=== PATIENT | female | born 1950 | race Caucasian/White ===

== ENCOUNTER 2018-09-26 16:37 | Emergency (ER) | payer MEDICARE, BC ==
--- OUTSIDE RECORDS SUMMARY | 2018-09-26 17:35 | XMS REPORT | Continuity of Care Document ---
:1950 External Reference #:[id number] Author Name Talha Miller M.D. Address [address] [place] [address] Care Team Providers Name Role Phone Talha Miller M.D. 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 Payers Type Date Identification Numbers Payment Provider Subscriber Effective: Policy Number: [id number] Medicare - NGS Orestes Aguilar 2014 Group Name: Medicare [address] PayID: [id number] [place] [address] Effective: 2012 Policy Number: [id number] [facility] DENAE Yuri Aguilar Group Name: [facility] [address] [address] PayID: [id number] [place] [address] Advance Directives Type Date Description Status Comment Other Directive 06/16/2018 Health Care Proxy Current and Verified Problems Date Description Provider Status Onset: 10/23/2011 Hypothyroidism Talha Miller M.D. Active Onset: 10/23/2011 Chronic obstructive lung disease Talha Miller M.D. Active Onset: 10/23/2011 Asthma without status Talha Miller M.D. Active asthmaticus Onset: 10/23/2011 Chronic bronchitis Talha Miller M.D. Active Onset: 10/23/2011 Pulmonary emphysema Talha Miller M.D. Active Onset: 10/23/2011 Hyperlipidemia Talha Miller M.D. 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 Active Onset: 10/23/2011 Type 2 diabetes mellitus Talha Miller M.D. Resolved Resolved: 12/07/2014 Family History Date Family Member(s) Problem(s) Comments General Diabetes General Lung Cancer General Heart Attack Mother Diabetes Medication Induced Social History Type Date Description Comments Sex Unknown Marital Status Legal Status: Lives With Spouse Work Status Retired ETOH Use Rarely Tobacco Use Start: Unknown End: Unknown Patient is a former smoker Smoking Status Reviewed: 09/14/18 Patient is a former smoker Allergies, Adverse Reactions, Alerts Date Description Reaction Status Severity Comments 09/28/2013 Lipitor myalgia Active Severe 12/02/2011 NKDA Inactive Medications Medication Date Status Form Strength Qnty SIG Indications Ordering Provider Pantoprazole 08/13/ Active Tablets DR 40mg 90tab 1 by mouth Talha Sodium 2017 s bid every Castellan day Héctor lam Zofran Odt 08/13/ Active Tablets 4mg 30tab 1 every 6 2017 Dispers s hrs prn Rebecca lam M.D. Wrist Splint 12/11/ Active Misc 2unit use for G56.03 2017 s the Lt and Castellaclara Rt wrist Héctor lam at night Levothyroxine 12/07/ Active Tablets 150mcg 90tab 1 by mouth E03.9 Talha Sodium 2017 s every day Rebecca lam M.D. Vitamin D-3 06/07/ Active Capsules 1000Unit 30cap 5 by mouth 2014 s every day Rebecca lam M.D. Flintstones 06/07/ Active Chewtabs 60mg 2 q d Talha Pike 2014 Rebecca lam M.D. Vitamin B-12 06/07/ Active Tablets 1000mcg 1T PO qod Talha 2014 Rebecca lam M.D. Atorvastatin / Active Tablets 80mg 30tab take 1 Talha Calcium 0000 s tablet by Castellan william osHéctor every day in the evening Lisinopril / Active Tablets 5mg Take 1 Unknown 0000 Tablet By Mouth Every Day Metoprolol / Active Tablets 25mg Take 1 Unknown Tartrate 0000 Tablet By Mouth Daily Nitroglycerin / Active Tablets 0.4mg Place 1 Unknown 0000 Sub Tablet Under The Tongue Every 5 Mins as Needed For Chest Pain Ferrous Sulfate / Active Tablets 325(65Fe) take one Dr. Megan 0000 mg tablet by Jona mouth daily with breakfast Sucralfate / Active Tablets 1gm take one Dr. Megan 0000 tablet by Jona mouth four times a day for 28 days. Clopidogrel 04/02/ Hx Tablets 75mg 30tab 1 by mouth Talha Bisulfate 2018 - s every day Castellan 08/13/ os, M.D. 2018 Pantoprazole 04/02/ Hx Tablets DR 40mg 90tab 1 by mouth Talha Sodium 2018 - s every day Castellan 06/16/ os, M.D. 2017 Aspir-Low 02/17/ Hx Tablets DR 81mg 90tab 1 by mouth Talha 2018 s every day Castellan os, M.D. Azithromycin 10/22/ Hx Tablets 250mg 6tabs 2 now and J06.9 Talha 2017 - daily x Castellan 12/11/ 4 days os, M.D. 2018 Benzonatate 10/22/ Hx Capsules 200mg 30cap one cap 3 J06.9 Talha 2017 - s times a Castellan 12/11/ day as os, M.D. 2018 needed cough Amoxicillin 11/05/ Hx Tablets 875mg 20tab 1 by mouth J02.9 Talha 2015 - s twice a Castellan 06/11/ day os, M.D. 2017 Viactiv 06/07/ Hx Chewtabs 500-500-4 2 chews qd Talha 2015 - 0mg-Unt-m Castellan 09/14/ cg os, M.D. 2018 Levothyroxine 06/06/ Hx Tablets 125mcg 30tab 1 by mouth E03.9 Talha Sodium 2013 - s every day Castellan 12/07/ os, M.D. 2018 Levothyroxine 11/07/ Hx Tablets 137mcg 30tab 1 po qd ( 244.9 Talha Sodium 2012 - stop the Castellan 06/06/ 150 mcg os, M.D. 2013 dose ) Levothyroxine 09/06/ Hx Tablets 150mcg 90tab 1 po qd 244.9 Talha Sodium 2012 - Castellan 11/07/ os, M.D. 2012 Levothyroxine 06/02/ Hx Tablets 137mcg 30tab 1 po qd ( 244.9 Talha Sodium 2012 - s stop the Castellan 09/06/ 125 mcg os, MCalixto 2013 dose ) Klor-Con 10 12/09/ Hx Tablets ER 10Meq 90tab 1 po qd 782.3 Talha 2012 - s Castellan 09/06/ os, M.Halie 2013 Pioglitazone HCL 12/07/ Hx Tablets 45mg 30tab Take 1 250.00 Talha 2012 - s Tablet By Castellan 09/06/ Mouth os, M.Halie 2013 Every Day Onetouch Ultra 11/27/ Hx Strips 100un Use as 250.00 Talha Alfred 2012 - its Directed Castellan 06/07/ os, M.Halie 2015 Lipitor 08/31/ Hx Tablets 20mg 30tab 1 q pm 272.4 Talha 2011 - s Castellan 09/06/ os, M.Halie 2013 Levocetirizine 08/31/ Hx Tablets 5mg 30tab 1 qd prn 477.9 Talha Knightchloride 2011 - s Castellan 09/06/ os, M.Halie 2013 Vitamin D-3 06/01/ Hx Tablets 5000Unit 90tab 1 po qd 268.9 Talha 2011 - s Castellan 09/06/ os, M.Halie 2013 Lasix 06/01/ Hx Tablets 20mg 180ta 2 po qd 782.3 Talha 2012 - bs (90 day) Castellan 09/06/ os, MCalixto 2013 Klor-Con 06/01/ Hx Tablets ER 10Meq 90tab 1 po qd 782.3 Talha 2011 - s Castellan 12/09/ os, M.Halie 2013 Niaspan 03/02/ Hx Tablets ER 500mg 180ta 2 po qd 272.4 Talha 2012 - bs with one Castellan 09/06/ aspirin os, M.Halie 2013 Tradjenta 01/01/ Hx Tablets 5mg 90tab 1 po qd 250.00 Talha 2012 - s Castellan 09/06/ os, M.Halie 2013 Actos 12/02/ Hx Tablets 45mg 30tab 1 qd 250.00 Talha 2012 - s Castellan 12/09/ os, M.DAlexi 2013 Levothyroxine 10/23/ Hx Tablets 125mcg 90tab 1 tab by 244.9 Talha Sodium 2010 - s mouth Castellan 06/02/ every day os, M.Halie 2013 Crestor 10/23/ Hx Tablets 40mg 90tab 1 tab by 272.4 Talha 2010 - s mouth Castellan 03/02/ every day os, M.DAlexi 2011 every night Onetouch Ultra 2 10/23/ Kit w/Device 250.00 Talha 2010 - Castellan 06/07/ os, M.Halie 2014 Glipizide ER 10/23/ Hx Tablets ER 10mg 90tab 1 tab by 250.00 Talha 2010 - 24HR s mouth Castellan 12/02/ every day os, M.Halie 2011 Proair HFA 10/23/ Hx Aerosol 108(90Bas 3unit 2 puffs q 496 Talha 2010 - ) mcg/ac s 4 hrs prn Castellan 06/07/ os, M.Halie 2014 493.90 Nasonex 10/23/2011 - Hx Suspension 50mcg/Act 3units 1-2 477.9 Talha 09/06/2013 sprays Paul every day Héctor Advair 10/23/2011 - Hx Aerosol 250-50mcg/Do 496 Talha Diskus 06/07/2015 se Héctor Miller 493.90 Spiriva 10/23/2011 - Hx Capsules 18mcg 1 inhalation 496 Talha Handihaler 06/07/2015 every day Héctor Miller 493.90 Albuterol 10/23/2011 - Hx Nebulizer (2.5mg/3ML) 1 application 496 Talha Sulfate 06/07/2015 0.083% q4h prn Héctor Miller 493.90 Metformin HCL 10/23/2011 - Hx Tablets 500mg 90tabs 1 qd 250.00 Talha 12/02/2011 Héctor Miller Actos 10/23/2011 - Hx Tablets 15mg 90tabs 1 qd 250.00 Talha 12/02/2011 Héctor Miller Brilinta - Hx Tablets 90mg Take 1 Unknown 04/02/2018 Tablet By Mouth Twice A Day Immunizations CPT Code Status Date Vaccine Reaction Lot # [id number] Given 08/19/2018 Flu High Dose Vaccine 54529 Given 08/19/2017 Flu High Dose Vaccine 94415 Given 08/15/2014 Flu Triv Old Code 46923 Given 06/06/2014 Prevnar 13 risk & benefits Prevnar 13 [id number] discussed p 88761 Given 09/08/2013 Flu Triv Old Code risk & benefits Flu [id number] discussed 73454 Given 08/31/2012 Shingles (Zoster) [id number] Vaccine 75262 Given 08/31/2012 Flu Triv Old Code [id number] 36480 Given 06/01/2012 Tdap Vaccine over 7 [id number] yrs old 86549 Given 10/23/2011 Flu Triv Old Code 17844 Given 09/13/2010 Flu Triv Old Code 96942 Given 08/30/2009 Flu Triv Old Code 97729 Given 02/12/2006 Hep B Vaccine - Adult Dosage 24617 Given 09/18/2005 Hep B Vaccine - Adult Dosage 01060 Given 08/14/2005 Hep B Vaccine - Adult Dosage 21458 Given 09/09/2001 Pneumovax [id number] Vital Signs Date Vital Result Comment 09/14/2018 1:01pm Weight 187.00 lb BP Systolic 146 mmHg BP Diastolic 78 mmHg 08/13/2018 1:36pm Weight 186.00 lb BP Systolic 126 mmHg BP Diastolic 58 mmHg Heart Rate 60 /min Respiratory Rate 16 /min 06/16/2018 1:05pm Weight 187.00 lb BP Systolic 120 mmHg BP Diastolic 78 mmHg Height 64.25 inches 5'4.25" Heart Rate 68 /min Respiratory Rate 16 /min BMI (Body Mass Index) 31.8 kg/m2 04/02/2018 1:31pm Weight 188.00 lb BP Systolic 90 mmHg BP Diastolic 40 mmHg 02/17/2018 11:50am Weight 184.00 lb BP Systolic 104 mmHg BP Diastolic 62 mmHg 12/11/2017 1:22pm Weight 200.00 lb BP Systolic 120 mmHg BP Diastolic 82 mmHg 10/22/2017 10:14am Weight 199.00 lb BP Systolic 132 mmHg BP Diastolic 68 mmHg Body Temperature 96.9 F 06/11/2017 1:09pm Weight 202.00 lb BP Systolic 142 mmHg BP Diastolic 82 mmHg Height 64.50 inches 5'4.50" Heart Rate 56 /min Respiratory Rate 16 /min BMI (Body Mass Index) 34.1 kg/m2 11/05/2016 2:21pm Weight 199.00 lb Body Temperature 99.9 F 06/10/2016 12:58pm Weight 194.00 lb BP Systolic 102 mmHg BP Diastolic 64 mmHg Height 64.45 inches 5'4.45" Heart Rate 64 /min Body Temperature 97.8 F O2 % BldC Oximetry 98 % BMI (Body Mass Index) 32.8 kg/m2 12/07/2015 1:49pm Weight 190.00 lb BP Systolic 110 mmHg BP Diastolic 60 mmHg 06/07/2015 12:59pm Weight 177.50 lb BP Systolic 120 mmHg BP Diastolic 70 mmHg Height 64 inches 5'4" Heart Rate 56 /min Body Temperature 97.1 F Respiratory Rate 16 /min BMI (Body Mass Index) 30.5 kg/m2 01/10/2015 1:41pm Weight 177.00 lb BP Systolic 110 mmHg BP Diastolic 78 mmHg 12/07/2014 1:52pm O2 % BldC Oximetry 99 % 12/07/2014 1:14pm Weight 173.00 lb BP Systolic 100 mmHg BP Diastolic 60 mmHg 06/06/2014 1:04pm Weight 180.00 lb BP Systolic 118 mmHg BP Diastolic 58 mmHg Height 64.25 inches 5'4.25" BMI (Body Mass Index) 30.7 kg/m2 02/07/2014 1:02pm Weight 208.50 lb BP Systolic 128 mmHg tooth extraction BP Diastolic 82 mmHg tooth extraction 11/09/2013 3:20pm Weight 237.00 lb BP Systolic 100 mmHg BP Diastolic 70 mmHg 11/09/2013 3:19pm Weight 235.00 lb 09/06/2013 1:33pm Weight 267.00 lb BP Systolic 120 mmHg BP Diastolic 68 mmHg 06/02/2013 3:20pm Weight 316.00 lb BP Systolic 120 mmHg BP Diastolic 70 mmHg Height 64 inches 5'4" Heart Rate 72 /min Body Temperature 98.5 F Respiratory Rate 16 /min BMI (Body Mass Index) 54.2 kg/m2 04/12/2013 1:30pm Weight 315.00 lb BP Systolic 130 mmHg BP Diastolic 60 mmHg Height 63.6 inches 5'3.60" BMI (Body Mass Index) 54.7 kg/m2 12/09/2012 1:23pm Weight 305.50 lb BP Systolic 120 mmHg BP Diastolic 60 mmHg Height 63.6 inches 5'3.60" BMI (Body Mass Index) 53.1 kg/m2 08/31/2012 1:00pm Weight 300.50 lb BP Systolic 130 mmHg BP Diastolic 70 mmHg Height 63.6 inches 5'3.60" BMI (Body Mass Index) 52.2 kg/m2 06/01/2012 1:03pm Weight 298.00 lb BP Systolic 140 mmHg BP Diastolic 50 mmHg Height 63.6 inches 5'3.60" Body Temperature 98.8 F Respiratory Rate 20 /min BMI (Body Mass Index) 51.8 kg/m2 03/02/2012 1:28pm Weight 295.00 lb BP Systolic 112 mmHg BP Diastolic 74 mmHg Height 63.50 inches 5'3.50" BMI (Body Mass Index) 51.4 kg/m2 01/01/2012 1:21pm Weight 278.50 lb BP Systolic 146 mmHg BP Diastolic 70 mmHg Height 63.50 inches 5'3.50" BMI (Body Mass Index) 48.6 kg/m2 10/23/2011 3:31pm Weight 278.00 lb BP Systolic 126 mmHg BP Diastolic 76 mmHg Results Test Date Facility Test Result H/L Range Note CBC 09/10/2018 [facility] White Blood Count 7.3 K/uL 3.1-10.7 8 [phone] Red Blood Count 3.85 M/uL Low 3.90-5.40 Hemoglobin 11.3 gm/dL Low 11.6-15.8 Hematocrit 37.9 % 36.0-46.1 Mean Cell Volume 98.4 fl 80.9-99.0 Mean Corpuscular HGB 29.4 pg 25.9-32.7 Mean Corpuscular HGB Conc 29.8 g/dL Low 30.8-34.3 Platelet Count 498 K/uL High 155-360 Red Cell Distri Width %CV 13.7 % 11.7-14.4 Mean Platelet Volume 10.4 fL 8.9-12.4 Laboratory test finding 09/10/2018 [facility] Ferritin 10 ng/mL 8- 252 [phone] Iron-Tibc-%Sat 09/10/2018 [facility] Serum Iron 37 g/dL Low 50- 170 [phone] Total Iron Binding Capacity 365 g/dL 250-450 Transferrin %Saturation 10 % Low 12-57 CBC 08/13/2018 [facility] White Blood Count 8.6 K/uL 3.1-10.7 [phone] Red Blood Count 2.96 M/uL Low 3.90-5.40 Hemoglobin 8.8 gm/dL Low 11.6-15.8 Hematocrit 29.5 % Low 36.0-46.1 Mean Cell Volume 99.7 fl High 80.9-99.0 Mean Corpuscular HGB 29.7 pg 25.9-32.7 Mean Corpuscular HGB Conc 29.8 g/dL Low 30.8-34.3 Platelet Count 717 K/uL High 155-360 Red Cell Distri Width %CV 15.2 % High 11.7-14.4 Mean Platelet Volume 9.9 fL 8.9-12.4 Laboratory test finding 08/13/2018 [facility] Ferritin 12 ng/mL 8- 252 [phone] Iron-Tibc-%Sat 08/13/2018 [facility] Serum Iron 49 g/dL Low 50- 170 [phone] Total Iron Binding Capacity 366 g/dL 250-450 Transferrin %Saturation 13 % 12-57 Laboratory test finding 07/26/2018 [facility] Lipase 267 U/L 56- 289 2 [phone] Comprehensive Metabolic Panel 07/26/2018 [facility] Glucose 91 mg/dL 74-106 [phone] BUN 16 mg/dL 7-18 Creatinine 1.0 mg/dL 0.6-1.3 Glom Filtration Rate, Estimate 59 mL/min >60 If >60 mL/min >60 3 BUN/Creat 16.0 ratio Sodium 140 mmol/L 136-145 Potassium 3.5 mmol/L 3.5-5.1 Chloride 106 mmol/L 98-107 Carbon Dioxide 25 mmol/L 21-32 Anion Gap 9 mEq/L 8-16 Calcium 8.5 mg/dL 8.5-10.1 Total Protein 7.6 g/dL 6.4-8.2 Albumin 3.4 g/dL 3.4-5.0 Globulin 4.2 g/dL 1.9-4.3 Alb/Glob 0.8 ratio Bilirubin,Total 0.5 mg/dL 0.2-1.0 Sgot/Ast 21 U/L 15-37 SGPT/Alt 24 U/L 12-78 Alkaline Phosphatase 85 U/L 45-117 CBS W/Automated Diff 07/26/2018 [facility] White Blood 8.9 K/uL 3.1-10.7 [phone] Count Red Blood Count 3.14 M/uL Low 3.90-5.40 Hemoglobin 9.4 gm/dL Low 11.6-15.8 Hematocrit 29.6 % Low 36.0-46.1 Mean Cell Volume 94.3 fl 80.9-99.0 Mean Corpuscular HGB 29.9 pg 25.9-32.7 Mean Corpuscular HGB Conc 31.8 g/dL 30.8-34.3 Platelet Count 411 K/uL High 155-360 Red Cell Distri Width SD 46.4 fl 3-47 Red Cell Distri Width %CV 14.0 % 11.7-14.4 Mean Platelet Volume 10.1 fL 8.9-12.4 Neut% 60.3 % 40.4-72.8 Lymph % 29.1 % 20.0-42.0 [place] % 7.6 % 4.3-13.2 Eo% 2.4 % 0.0-6.6 Bas% 0.6 % 0.0-1.1 Neut# 5.38 K/uL 1.8-7.0 Lymph # 2.60 K/uL 1.0-4.0 [place] # 0.68 K/uL 0.3-0.9 Eos # 0.21 K/uL 0.0-0.5 Baso # 0.05 K/uL 0.0-0.1 Urinalysis With 07/26/2018 [facility] Urine Color YELLOW Yellow Microscopic [phone] Urine Clarity CLEAR Clear Urine Glucose - Dipstick NEGATIVE mg/dL Negative Urine Bilirubin - Dipstick NEGATIVE Negative Urine Ketone NEGATIVE mg/dL Negative Urine Specific [place] 1.015 1.010-1.030 Urine Blood NEGATIVE Negative Urine PH 5.5 Low 6.5-7.5 Urine Protein - Dipstick NEGATIVE mg/dL Negative Urine Urobilinogen - Dipstick 0.2 E.U./dL 0.2-1.0 Urine Nitrite - Dipstick NEGATIVE Negative Urine Leuk Esterase TRACE Negative Urine RBC 5-10 rbc/hpf High 0-2 Urine WBC 2-5 wbc/hpf 0-7 Urine Epithelial Cells FEW /lpf None Seen Urine Bacteria FEW None Seen Source: URINE, CLEAN CAT <SEE NOTE> 4 TSH Reflex FT4 05/29/2018 [facility] Thyroid Stim 0.60 uIU/mL 0.30 -4.20 5 And/Or FT3 [phone] Hormone Reflex add FT4? Y Free T4 01/01/2018 [facility] Free T4 1.43 ng/dL 0.76-1.46 6 [phone] Reflex add FT4? Y Microalbumin,Random 01/01/2018 [facility] Microalbumin,Urine < 5.0 < Urine [phone] mg/L 20.0 LDL Cholesterol 01/01/2018 [facility] Cholesterol 224 High <200 7 Profile [phone] mg/dL Triglycerides 171 mg/dL High <150 8 HDL Cholesterol 58 mg/dL >40 9 LDL-Cholesterol 132 mg/dL < 100 10 Reflex add FT4? Y Glycohemoglobin A1c 01/01/2018 [facility] Glycohemoglobin 5.9 % 4.2-6.3 11 [phone] (A1c) eAG 123 mg/dL Comprehensive Metabolic 01/01/2018 [facility] Glucose 101 mg/dL 74 -106 Panel [phone] BUN 15 mg/dL 7-18 Creatinine 0.9 mg/dL 0.6-1.3 Glom Filtration Rate, Estimate >60 mL/min >60 If >60 mL/min >60 12 BUN/Creat 16.6 ratio Sodium 141 mmol/L 136-145 Potassium 4.5 mmol/L 3.5-5.1 Chloride 106 mmol/L 98-107 Carbon Dioxide 29 mmol/L 21-32 Anion Gap 6 mEq/L Low 8-16 Calcium 9.4 mg/dL 8.5-10.1 Total Protein 7.9 g/dL 6.4-8.2 Albumin 3.5 g/dL 3.4-5.0 Globulin 4.4 g/dL High 1.9-4.3 Alb/Glob 0.8 ratio Bilirubin,Total 0.5 mg/dL 0.2-1.0 Sgot/Ast 21 U/L 15-37 SGPT/Alt 23 U/L 12-78 Alkaline Phosphatase 83 U/L 45-117 Reflex add FT4? Y CBC 01/01/2018 [facility] White Blood Count 7.8 K/uL 3.1-10.7 [phone] Red Blood Count 4.14 M/uL 3.90-5.40 Hemoglobin 13.6 gm/dL 11.6-15.8 Hematocrit 41.0 % 36.0-46.1 Mean Cell Volume 99.0 fl 80.9-99.0 Mean Corpuscular HGB 32.9 pg High 25.9-32.7 Mean Corpuscular HGB Conc 33.2 g/dL 30.8-34.3 Platelet Count 401 K/uL High 155-360 Red Cell Distri Width %CV 13.1 % 11.7-14.4 Mean Platelet Volume 10.1 fL 8.9-12.4 TSH Reflex 01/01/2018 [facility] Thyroid Stim 10.10 uIU/mL High 0.30-4.20 FT4 And/Or [phone] Hormone FT3 Reflex add FT4? Y TSH Reflex 12/03/2017 [facility] Thyroid Stim 97.10 uIU/mL High 0.30-4.20 FT4 And/Or [phone] Hormone FT3 Reflex add FT4? Y LDL Cholesterol 12/03/2017 [facility] Cholesterol 333 mg/dL High < 200 13 Profile [phone] Triglycerides 146 mg/dL <150 14 HDL Cholesterol 86 mg/dL >40 15 LDL-Cholesterol 218 mg/dL < 100 16 Reflex add FT4? Y Free T4 12/03/2017 [facility] Free T4 0.34 ng/dL Low 0.76-1.46 [phone] Reflex add FT4? Y TSH Reflex 06/26/2017 [facility] Thyroid Stim 52.90 uIU/mL High 0.30-4.20 17 FT4 And/Or [phone] Hormone FT3 Reflex add FT4? Y LDL Cholesterol 06/26/2017 [facility] Cholesterol 293 mg/dL High < 200 18 Profile [phone] Triglycerides 127 mg/dL <150 19 HDL Cholesterol 75 mg/dL >40 20 LDL-Cholesterol 193 mg/dL < 100 21 Reflex add FT4? Y Comprehensive Metabolic Panel 06/26/2017 [facility] Glucose 88 mg/dL 74-106 [phone] BUN 15 mg/dL 7-18 Creatinine 1.0 mg/dL 0.6-1.3 Glom Filtration Rate, Estimate 59 mL/min >60 If >60 mL/min >60 22 BUN/Creat 15.0 ratio Sodium 139 mmol/L 136-145 Potassium 3.8 mmol/L 3.5-5.1 Chloride 105 mmol/L 98-107 Carbon Dioxide 30 mmol/L 21-32 Anion Gap 4 mEq/L Low 8-16 Calcium 8.9 mg/dL 8.5-10.1 Total Protein 7.8 g/dL 6.4-8.2 Albumin 3.4 g/dL 3.4-5.0 Globulin 4.4 g/dL High 1.9-4.3 Alb/Glob 0.8 ratio Bilirubin,Total 0.5 mg/dL 0.2-1.0 Sgot/Ast 25 U/L 15-37 SGPT/Alt 24 U/L 12-78 Alkaline Phosphatase 96 U/L 45-117 Reflex add FT4? Y CBC 06/26/2017 [facility] White Blood Count 8.5 K/uL 3.1-10.7 [phone] Red Blood Count 4.30 M/uL 3.90-5.40 Hemoglobin 13.8 gm/dL 11.6-15.8 Hematocrit 42.2 % 36.0-46.1 Mean Cell Volume 98.1 fl 80.9-99.0 Mean Corpuscular HGB 32.1 pg 25.9-32.7 Mean Corpuscular HGB Conc 32.7 g/dL 30.8-34.3 Platelet Count 338 K/uL 150-400 Red Cell Distri Width %CV 14.4 % 11.7-14.4 Mean Platelet Volume 10.5 fL 8.9-12.4 Free T4 06/26/2017 [facility] Free T4 0.82 ng/dL 0.76-1.46 [phone] Reflex add FT4? Y Laboratory test 11/05/[address] [facility] Throat Culture SEE 23, 24 finding [phone] RESULT BELOW Laboratory test 06/12/2016 [facility] Thyroid Stim 1.01 0.3 finding [phone] Hormone uIU/mL 0-4 .20 Glycohemoglobin A1c 06/12/2016 [facility] Glycohemoglobin 5.8 % 4.2 25 [phone] (A1c) -6. 3 eAG 120 mg/dL LDL Cholesterol 06/12/2016 [facility] Cholesterol 245 mg/dL High < 200 26 Profile [phone] Triglycerides 161 mg/dL High <150 27 HDL Cholesterol 52 mg/dL >40 28 LDL-Cholesterol 161 mg/dL < 100 29 Laboratory 06/12/2016 [facility] Microalbumin,Random < 5.0 mg/L < 20.0 test finding [phone] Urine Hepatitis C 06/12/2016 [facility] Hepatitis C Antibody Nonreactive Antibody [phone] Nonreactive Signal/Cutoff ratio < 0.02 <0.80 30 Laboratory test 07/07/2015 [facility] TSH Reflex 0.44 uIU/mL 0.36- 3.74 31 finding [phone] FT4 and/or FT3 Vitamin D,25-Hydroxy 64.2 ng/mL 30.0-100.0 32 Glycohemoglobin A1c 07/07/2015 [facility] Glycohemoglobin 5.8 % 4.2-6.3 33 [phone] (A1c) eAG 120 mg/dL Comprehensive Metabolic Panel 07/07/2015 [facility] Glucose 94 mg/dL 74-106 [phone] BUN 10 mg/dL 7-18 Creatinine 1.0 mg/dL 0.6-1.3 Glom Filtration Rate, Estimate 59 mL/min >60 If >60 mL/min >60 34 BUN/Creat 10.0 ratio Sodium 140 mmol/L 136-145 Potassium 4.4 mmol/L 3.5-5.1 Chloride 109 mmol/L High 98-107 Carbon Dioxide 29 mmol/L 21-32 Anion Gap 2 mEq/L Low 8-16 Calcium 9.4 mg/dL 8.5-10.1 Total Protein 7.7 g/dL 6.4-8.2 Albumin 3.4 g/dL 3.4-5.0 Globulin 4.3 g/dL 1.9-4.3 Alb/Glob 0.8 ratio Bilirubin,Total 0.6 mg/dL 0.2-1.0 Sgot/Ast 22 U/L 15-37 SGPT/Alt 27 U/L 12-78 Alkaline Phosphatase 94 U/L 45-117 Laboratory test 07/07/2015 [facility] Microalbumin,Random < 5.0 < 20.0 finding [phone] Urine mg/L LDL Cholesterol 07/07/2015 [facility] Cholesterol 216 < 200 35 Profile [phone] mg/dL Triglycerides 120 mg/dL < 150 36 HDL Cholesterol 55 mg/dL > 40 37 LDL-Cholesterol 137 mg/dL < 100 38 LDL Cholesterol Profile 05/31/2015 [facility] Cholesterol 202 mg/dL < 200 39 [phone] Triglycerides 96 mg/dL < 150 40 HDL Cholesterol 56 mg/dL > 40 41 LDL-Cholesterol 127 mg/dL < 100 42 Comprehensive Metabolic Panel 12/02/2014 [facility] Glucose 87 mg/dL 74-106 [phone] BUN 14 mg/dL 7-18 Creatinine 1.0 mg/dL 0.6-1.3 Glom Filtration Rate, Estimate 59 mL/min >60 If >60 mL/min >60 43 BUN/Creat 14.0 ratio Sodium 140 mmol/L 136-145 Potassium 4.0 mmol/L 3.5-5.1 Chloride 106 mmol/L 98-107 Carbon Dioxide 28 mmol/L 21-32 Anion Gap 10 mEq/L 8-16 Calcium 9.4 mg/dL 8.5-10.1 Total Protein 7.5 g/dL 6.4-8.2 Albumin 3.5 g/dL 3.4-5.0 Globulin 4.0 g/dL 1.9-4.3 Alb/Glob 0.9 ratio Bilirubin,Total 0.8 mg/dL 0.2-1.0 Sgot/Ast 16 U/L 15-37 SGPT/Alt 18 U/L 12-78 Alkaline Phosphatase 102 U/L 45-117 Glycohemoglobin A1c 12/02/2014 [facility] Glycohemoglobin 5.6 % 4.2-6.3 44 [phone] (A1c) eAG 114 mg/dL Laboratory test 12/02/2014 [facility] Microalbumin,Random < 5.0 < 20.0 finding [phone] Urine mg/L LDL Cholesterol 12/02/2014 [facility] Cholesterol 226 < 200 45 Profile [phone] mg/dL Triglycerides 126 mg/dL < 150 46 HDL Cholesterol 57 mg/dL > 40 47 LDL-Cholesterol 144 mg/dL < 100 48 Laboratory test 12/02/2014 [facility] Thyroid Stim 1.98 uIU/mL 0.36-3.74 finding [phone] Hormone CBS W/Automated 08/02/2014 [facility] White Blood 6.6 K/uL 3.1- 10.7 Diff [phone] Count Red Blood Count 4.44 M/uL 3.90-5.40 Hemoglobin 13.7 gm/dL 11.6-15.8 Hematocrit 41.8 % 36.0-46.1 Mean Cell Volume 94.1 fl 80.9-99.0 Mean Corpuscular HGB 30.9 pg 27.0-33.0 Mean Corpuscular HGB Conc 32.8 g/dL 31.7-36.0 Platelet Count 438 K/uL High 155-360 Red Cell Distri Width SD 44.4 fl 3-47 Red Cell Distri Width %CV 13.2 % 11.7-14.4 Mean Platelet Volume 11.0 fL 8.9-12.4 Neut% 59.9 % 40.4-72.8 Lymph % 28.0 % 17.0-46.1 [place] % 8.3 % 4.3-13.2 Eo% 3.0 % 0.0-6.6 Bas% 0.8 % 0.0-1.1 Neut# 3.95 K/uL 1.0-7.0 Lymph # 1.85 K/uL 0.8-3.4 [place] # 0.55 K/uL 0.3-0.9 Eos # 0.20 K/uL 0.0-0.5 Baso # 0.05 K/uL 0.0-0.1 Iron-Tibc-%Sat 06/27/2014 [facility] Serum Iron 59 g/dL 25-156 [phone] Total Iron Binding Capacity 274 g/dL [phone] Transferrin %Saturation 22 % 12-57 [facility] [place] Vitamin B12 808 pg/mL 200- 900 49 finding [phone] Comprehensive 06/27/2014 [facility] [place] Glucose 91 mg/dL 76-115 Metabolic Panel [phone] BUN 10 mg/dL 5-23 Creatinine 1.0 mg/dL 0.5-1.4 Glom Filtration Rate, Estimate 60 mL/min >60 If >60 mL/min >60 50 BUN/Creat 10.0 ratio Sodium 141 mmol/L 136-145 Potassium 3.7 mmol/L 3.5-5.1 Chloride 107 mmol/L 98-107 Carbon Dioxide 28 mEq/L 18-29 Anion Gap 10 mEq/L 8-16 Calcium 9.6 mg/dL 8.5-10.1 Total Protein 8.1 g/dL High 6.3-8.0 Albumin 3.4 g/dL Low 3.5-5.0 Globulin 4.7 g/dL High 1.9-4.3 Alb/Glob 0.7 ratio Bilirubin,Total 0.8 mg/dL 0.2-1.2 Sgot/Ast 19 U/L 16-40 SGPT/Alt 19 U/L Low 30-65 Alkaline Phosphatase 108 U/L 50-136 Laboratory test finding 06/27/2014 [facility] [place] Phosphorous 3.7 mg/dL 2.4-4.7 [phone] Magnesium 2.1 mg/dL 1.7-2.3 Ferritin 166.6 ng/mL High 3-105 Glycohemoglobin A1c 06/27/2014 [facility] [place] Glycohemoglobin 5.4 % 4.8-6.0 51 [phone] (A1c) eAG 108 mg/dL Folate,RBC 06/27/2014 [facility] [place] Folate,Hemolysate 484.9 NotEstab.ng/ m [phone] Hematocrit 40.4 % 34.0-46.6 Folate,RBC 1200 ng/mL [phone] Laboratory test 06/27/2014 [facility] [place] Vitamin 51.2 30.0-100.0 53 finding [phone] D,25-Hydroxy ng/mL CBS W/Automated 06/27/2014 [facility] [place] White Blood Count 7.0 K/uL 3.1-10.7 Diff [phone] Red Blood Count 4.32 M/uL 3.90-5.40 Hemoglobin 13.7 gm/dL 11.6-15.8 Hematocrit 40.4 % 36.0-46.1 Mean Cell Volume 93.5 fl 80.9-99.0 Mean Corpuscular HGB 31.7 pg 25.9-32.7 Mean Corpuscular HGB Conc 33.9 g/dL 30.8-34.3 Platelet Count 454 K/uL High 155-360 Red Cell Distri Width SD 44.0 fl 3-47 Red Cell Distri Width %CV 13.2 % 11.7-14.4 Mean Platelet Volume 11.2 fL 8.9-12.4 Neut% 59.0 % 40.4-72.8 Lymph % 27.4 % 17.0-46.1 [place] % 7.5 % 4.3-13.2 Eo% 5.1 % 0.0-6.6 Bas% 1.0 % 0.0-1.1 Neut# 4.14 K/uL 1.0-7.0 Lymph # 1.92 K/uL 0.8-3.4 [place] # 0.53 K/uL 0.3-0.9 Eos # 0.36 K/uL 0.0-0.5 Baso # 0.07 K/uL 0.0-0.1 Laboratory test 05/30/2014 [facility] [place] Thyroid Stim 0.16 Low 0.49- 4.67 54 finding [phone] Hormone uIU/mL LDL Cholesterol 05/30/2014 [facility] [place] Cholesterol 187 mg/dL 120- 200 Profile [phone] Triglycerides 103 mg/dL 16-231 HDL Cholesterol 42 mg/dL 29-83 LDL-Cholesterol 124 mg/dL 62-185 Glycohemoglobin A1c 05/30/2014 [facility] [place] Glycohemoglobin 6.0 % 4.8-6.0 55 [phone] (A1c) eAG 126 mg/dL Laboratory test 05/30/2014 [facility] [place] Microalbumin,Random < 5.0 0.0-18.5 finding [phone] Urine mg/L Comprehensive 05/30/2014 [facility] [place] Glucose 91 76-115 Metabolic Panel [phone] mg/dL BUN 15 mg/dL 5-23 Creatinine 0.9 mg/dL 0.5-1.4 Glom Filtration Rate, Estimate >60 mL/min >60 If >60 mL/min >60 56 BUN/Creat 16.6 ratio Sodium 140 mmol/L 136-145 Potassium 4.3 mmol/L 3.5-5.1 Chloride 107 mmol/L 98-107 Carbon Dioxide 26 mEq/L 18-29 Anion Gap 11 mEq/L 8-16 Calcium 9.2 mg/dL 8.5-10.1 Total Protein 7.5 g/dL 6.3-8.0 Albumin 3.4 g/dL Low 3.5-5.0 Globulin 4.1 g/dL 1.9-4.3 Alb/Glob 0.8 ratio Bilirubin,Total 0.5 mg/dL 0.2-1.2 Sgot/Ast 15 U/L Low 16-40 SGPT/Alt 18 U/L Low 30-65 Alkaline Phosphatase 98 U/L 50-136 Comprehensive Metabolic Panel 02/04/2014 [facility] [place] Glucose 93 mg/dL 76-115 [phone] BUN 7 mg/dL 5-23 Creatinine 1.1 mg/dL 0.5-1.4 Glom Filtration Rate, Estimate 53 mL/min >60 If >60 mL/min >60 57 BUN/Creat 6.3 ratio Sodium 141 mmol/L 136-145 Potassium 3.5 mmol/L 3.5-5.1 Chloride 106 mmol/L 98-107 Carbon Dioxide 27 mEq/L 18-29 Anion Gap 12 mEq/L 8-16 Calcium 9.8 mg/dL 8.5-10.1 Total Protein 7.9 g/dL 6.3-8.0 Albumin 3.6 g/dL 3.5-5.0 Globulin 4.3 g/dL 1.9-4.3 Alb/Glob 0.8 ratio Bilirubin,Total 0.9 mg/dL 0.2-1.2 Sgot/Ast 18 U/L 16-40 SGPT/Alt 21 U/L Low 30-65 Alkaline Phosphatase 100 U/L 50-136 Glycohemoglobin A1c 02/04/2014 [facility] [place] Glycohemoglobin 6.0 % 4.8-6.0 58 [phone] (A1c) eAG 126 mg/dL Laboratory test 02/04/2014 [facility] [place] Microalbumin,Random < 5.0 0.0-18.5 finding [phone] Urine mg/L Laboratory test 11/05/2013 [facility] [place] Thyroid Stim Hormone 0.09 Low 0.49-4.67 59 finding [phone] uIU/mL Comprehensive 11/05/2013 [facility] [place] Glucose 99 76-115 Metabolic Panel [phone] mg/dL BUN 8 mg/dL 5-23 Creatinine 0.8 mg/dL 0.5-1.4 Glom Filtration Rate, Estimate >60 mL/min >60 If >60 mL/min >60 60 BUN/Creat 10.0 ratio Sodium 141 mmol/L 136-145 Potassium 3.3 mmol/L Low 3.5-5.1 Chloride 107 mmol/L 98-107 Carbon Dioxide 28 mEq/L 18-29 Anion Gap 9 mEq/L 8-16 Calcium 9.4 mg/dL 8.5-10.1 Total Protein 7.2 g/dL 6.3-8.0 Albumin 3.2 g/dL Low 3.5-5.0 Globulin 4.0 g/dL 1.9-4.3 Alb/Glob 0.8 ratio Bilirubin,Total 0.7 mg/dL 0.2-1.2 Sgot/Ast 17 U/L 16-40 SGPT/Alt 20 U/L Low 30-65 Alkaline Phosphatase 81 U/L 50-136 Laboratory 11/05/2013 [facility] [place] Microalbumin,Random 13.8 0.0- 18.5 test finding [phone] Urine mg/L LDL 11/05/2013 [facility] [place] Cholesterol 225 High 120-200 Cholesterol [phone] mg/dL Profile Triglycerides 195 mg/dL 16-231 HDL Cholesterol 44 mg/dL 29-83 LDL-Cholesterol 142 mg/dL 62-185 Laboratory test 08/31/2013 [facility] [place] TSH Reflex 9.81 High 0.49- 4.67 61 finding [phone] FT4 and/or uIU/mL FT3 Comprehensive 08/31/2013 [facility] [place] Glucose 100 mg/dL 76-115 Metabolic Panel [phone] BUN 7 mg/dL 5-23 Creatinine 0.9 mg/dL 0.5-1.4 Glom Filtration Rate, Estimate >60 mL/min >60 If >60 mL/min >60 62 BUN/Creat 7.7 ratio Sodium 143 mmol/L 136-145 Potassium 3.6 mmol/L 3.5-5.1 Chloride 107 mmol/L 98-107 Carbon Dioxide 27 mEq/L 18-29 Anion Gap 13 mEq/L 8-16 Calcium 9.5 mg/dL 8.5-10.1 Total Protein 7.2 g/dL 6.3-8.0 Albumin 3.2 g/dL Low 3.5-5.0 Globulin 4.0 g/dL 1.9-4.3 Alb/Glob 0.8 ratio Bilirubin,Total 0.7 mg/dL 0.2-1.2 Sgot/Ast 22 U/L 16-40 SGPT/Alt 24 U/L Low 30-65 Alkaline Phosphatase 91 U/L 50-136 Glycohemoglobin A1c 08/31/2013 [facility] [place] Glycohemoglobin 5.5 % 4.8-6.0 63 [phone] (A1c) eAG 111 mg/dL Laboratory 08/31/2013 [facility] [place] Microalbumin,Random 7.8 0.0-18.5 test finding [phone] Urine mg/L LDL 08/31/2013 [facility] [place] Cholesterol 270 High 120-200 Cholesterol [phone] mg/dL Profile Triglycerides 198 mg/dL 16-231 HDL Cholesterol 43 mg/dL 29-83 LDL-Cholesterol 187 mg/dL High 62-185 Laboratory test 08/31/2013 [facility] [place] Free T4 1.20 ng/dL 0.71- 1.85 finding [phone] Basic Metabolic Panel 08/18/2013 [facility] [place] Glucose 132 mg/dL High 76-115 [phone] BUN 7 mg/dL 5-23 Creatinine 1.3 mg/dL 0.5-1.4 Glom Filtration Rate, Estimate 44 mL/min >60 If 53 mL/min >60 64 BUN/Creat 5.3 ratio Sodium 142 mmol/L 136-145 Potassium 4.1 mmol/L 3.5-5.1 Chloride 106 mmol/L 98-107 Carbon Dioxide 26 mEq/L 18-29 Anion Gap 14 mEq/L 8-16 Calcium 9.1 mg/dL 8.5-10.1 Urine Screen 08/06/2013 [facility] [place] Urine Color YELLOW Yellow [phone] Urine Clarity CLEAR Clear Urine Glucose - Dipstick NEGATIVE mg/dL Negative Urine Bilirubin - Dipstick NEGATIVE Negative Urine Ketone NEGATIVE mg/dL Negative Urine Specific [place] 1.010 1.010-1.030 Urine Blood NEGATIVE Negative Urine PH 7.0 6.5-7.5 Urine Protein - Dipstick NEGATIVE mg/dL Negative Urine Urobilinogen - Dipstick 0.2 E.U./dL 0.2-1.0 Urine Nitrite - Dipstick NEGATIVE Negative Urine Leuk Esterase NEGATIVE Negative Comprehensive Metabolic 08/06/2013 [facility] [place] Glucose 137 mg/dL High 76-115 Panel [phone] BUN 13 mg/dL 5-23 Creatinine 1.0 mg/dL 0.5-1.4 Glom Filtration Rate, Estimate 60 mL/min >60 If >60 mL/min >60 65 BUN/Creat 13.0 ratio Sodium 142 mmol/L 136-145 Potassium 3.9 mmol/L 3.5-5.1 Chloride 106 mmol/L 98-107 Carbon Dioxide 26 mEq/L 18-29 Anion Gap 14 mEq/L 8-16 Calcium 8.9 mg/dL 8.5-10.1 Total Protein 6.8 g/dL 6.3-8.0 Albumin 2.8 g/dL Low 3.5-5.0 Globulin 4.0 g/dL 1.9-4.3 Alb/Glob 0.7 ratio Bilirubin,Total 1.0 mg/dL 0.2-1.2 Sgot/Ast 18 U/L 16-40 SGPT/Alt 31 U/L 30-65 Alkaline Phosphatase 117 U/L 50-136 CBC W/Automated Diff 08/06/2013 [facility] [place] White Blood 10.5 K/uL 3.1-10.7 [phone] Count Red Blood Count 4.04 M/uL 3.90-5.40 Hemoglobin 12.7 gm/dL 11.6-15.8 Hematocrit 39.1 % 36.0-46.1 Mean Cell Volume 96.8 fl 80.9-99.0 Mean Corpuscular HGB 31.4 pg 25.9-32.7 Mean Corpuscular HGB Conc 32.5 g/dL 30.8-34.3 Platelet Count 347 K/uL 155-360 Red Cell Distri Width SD 54.7 fl High 3-47 Red Cell Distri Width %CV 15.8 % High 11.7-14.4 Mean Platelet Volume 10.5 fL 8.9-12.4 Neut% 76.3 % High 40.4-72.8 Lymph % 12.7 % Low 17.0-46.1 [place] % 9.3 % 4.3-13.2 Eo% 1.1 % 0.0-6.6 Bas% 0.6 % 0.0-1.1 Neut# 8.02 K/uL High 1.0-7.0 Lymph # 1.34 K/uL 0.8-3.4 [place] # 0.98 K/uL High 0.3-0.9 Eos # 0.12 K/uL 0.0-0.5 Baso # 0.06 K/uL 0.0-0.1 Laboratory test 06/10/2013 [facility] [place] TSH Reflex FT4 3.99 0.49- 4.67 66 finding [phone] and/or FT3 uIU/mL Xray 06/03/2013 [facility] chest Xray pa <pendin [address] [place] [address] [phone] Glycohemoglobin 06/03/2013 [facility] [place] Glycohemoglobin 6.3 % High 4.8-6.0 67 A1c [phone] (A1c) eAG 134 mg/dL Protime 06/03/2013 [facility] [place] Protime 13.3 seconds 12.0-14.4 [phone] Inr 1.0 0.9-1.1 68 Glycohemoglobin 04/08/2013 [facility] [place] Glycohemoglobin 6.6 % High 4.8-6.0 69 A1c [phone] (A1c) eAG 143 mg/dL Laboratory test 04/08/2013 [facility] [place] Microalbumin,Random < 5.0 0.0-18.5 finding [phone] Urine mg/L Comprehensive 04/08/2013 [facility] [place] Glucose 128 High 76-115 Metabolic Panel [phone] mg/dL BUN 14 mg/dL 5-23 Creatinine 1.1 mg/dL 0.5-1.4 Glom Filtration Rate, Estimate 53 mL/min >60 If >60 mL/min >60 70 BUN/Creat 12.7 ratio Sodium 144 mmol/L 136-145 Potassium 4.1 mmol/L 3.5-5.1 Chloride 105 mmol/L 98-107 Carbon Dioxide 32 mEq/L High 18-29 Anion Gap 11 mEq/L 8-16 Calcium 9.4 mg/dL 8.5-10.1 Total Protein 8.3 g/dL High 6.3-8.0 Albumin 3.5 g/dL 3.5-5.0 Globulin 4.8 g/dL High 1.9-4.3 Alb/Glob 0.7 ratio Bilirubin,Total 0.6 mg/dL 0.2-1.2 Sgot/Ast 13 U/L Low 16-40 SGPT/Alt 19 U/L Low 30-65 Alkaline Phosphatase 99 U/L 50-136 LDL Cholesterol 04/08/2013 [facility] [place] Cholesterol 211 mg/dL High 120-200 Profile [phone] Triglycerides 188 mg/dL 16-231 HDL Cholesterol 46 mg/dL 29-83 LDL-Cholesterol 127 mg/dL 62-185 Comprehensive Metabolic 01/07/2013 [facility] [place] Glucose 111 mg/dL 76 -115 Panel [phone] BUN 16 mg/dL 5-23 Creatinine 0.9 mg/dL 0.5-1.4 Glom Filtration Rate, Estimate >60 mL/min >60 If >60 mL/min >60 71 BUN/Creat 17.7 ratio Sodium 138 mmol/L 136-145 Potassium 3.7 mmol/L 3.5-5.1 Chloride 101 mmol/L 98-107 Carbon Dioxide 32 mEq/L High 18-29 Anion Gap 9 mEq/L 8-16 Calcium 9.4 mg/dL 8.5-10.1 Total Protein 8.1 g/dL High 6.3-8.0 Albumin 3.4 g/dL Low 3.5-5.0 Globulin 4.7 g/dL High 1.9-4.3 Alb/Glob 0.7 ratio Bilirubin,Total 0.6 mg/dL 0.2-1.2 Sgot/Ast 13 U/L Low 16-40 SGPT/Alt 18 U/L Low 30-65 Alkaline Phosphatase 103 U/L 50-136 Glycohemoglobin 12/07/2012 [facility] [place] Glycohemoglobin 6.7 % High 4.8-6.0 72 A1c [phone] (A1c) eAG 146 mg/dL Liver Function 12/07/2012 [facility] [place] Total Protein 8.5 g/dL High 6.3-8.0 Tests [phone] Albumin 3.7 g/dL 3.5-5.0 Globulin 4.8 g/dL High 1.9-4.3 Alb/Glob 0.8 ratio Bilirubin,Total 0.7 mg/dL 0.2-1.2 Bilirubin,Direct < 0.1 mg/dL Low 0.1-0.4 Bilirubin,Indirect 0.6 mg/dL 0.0-0.9 Sgot/Ast 13 U/L Low 16-40 SGPT/Alt 23 U/L Low 30-65 Alkaline Phosphatase 84 U/L 50-136 Comprehensive Metabolic 12/07/2012 [facility] [place] Glucose 145 mg/dL High 76-115 Panel [phone] BUN 15 mg/dL 5-23 Creatinine 0.9 mg/dL 0.5-1.4 Glom Filtration Rate, Estimate >60 mL/min >60 If >60 mL/min >60 73 BUN/Creat 16.6 ratio Sodium 139 mmol/L 136-145 Potassium 3.7 mmol/L 3.5-5.1 Chloride 102 mmol/L 98-107 Carbon Dioxide 32 mEq/L High 18-29 Anion Gap 9 mEq/L 8-16 Calcium 9.5 mg/dL 8.5-10.1 Total Protein 8.5 g/dL High 6.3-8.0 Albumin 3.7 g/dL 3.5-5.0 Globulin 4.8 g/dL High 1.9-4.3 Alb/Glob 0.8 ratio Bilirubin,Total 0.7 mg/dL 0.2-1.2 Sgot/Ast 13 U/L Low 16-40 SGPT/Alt 23 U/L Low 30-65 Alkaline Phosphatase 84 U/L 50-136 LDL Cholesterol 12/07/2012 [facility] [place] Cholesterol 218 mg/dL High 120-200 Profile [phone] Triglycerides 216 mg/dL 16-231 HDL Cholesterol 47 mg/dL 29-83 LDL-Cholesterol 128 mg/dL 62-185 Glycohemoglobin 09/03/2012 [facility] [place] Glycohemoglobin 6.7 % High 4.8-6.0 74 A1c [phone] (A1c) eAG 146 mg/dL Comprehensive Metabolic 09/03/2012 [facility] [place] Glucose 105 mg/dL 76 -115 Panel [phone] BUN 17 mg/dL 5-23 Creatinine 0.9 mg/dL 0.5-1.4 Glom Filtration Rate, Estimate >60 mL/min >60 If >60 mL/min >60 75 BUN/Creat 18.8 ratio Sodium 141 mmol/L 136-145 Potassium 4.0 mmol/L 3.5-5.1 Chloride 102 mmol/L 98-107 Carbon Dioxide 31 mEq/L High 18-29 Anion Gap 12 mEq/L 8-16 Calcium 9.5 mg/dL 8.5-10.1 Total Protein 8.3 g/dL High 6.3-8.0 Albumin 3.5 g/dL 3.5-5.0 Globulin 4.8 g/dL High 1.9-4.3 Alb/Glob 0.7 ratio Bilirubin,Total 0.4 mg/dL 0.2-1.2 Sgot/Ast 23 U/L 16-40 SGPT/Alt 24 U/L Low 30-65 Alkaline Phosphatase 73 U/L 50-136 LDL Cholesterol 09/03/2012 [facility] [place] Cholesterol 344 mg/dL High 120-200 Profile [phone] Triglycerides 281 mg/dL High 16-231 HDL Cholesterol 45 mg/dL 29-83 LDL-Cholesterol 243 mg/dL High 62-185 CBS W/Automated Diff 05/28/2012 [facility] [place] White Blood 9.2 K/uL 3.1-10.7 [phone] Count Red Blood Count 4.39 M/uL 3.90-5.40 Hemoglobin 13.2 gm/dL 11.6-15.8 Hematocrit 41.6 % 36.0-46.1 Mean Cell Volume 94.8 fl 80.9-99.0 Mean Corpuscular HGB 30.1 pg 25.9-32.7 Mean Corpuscular HGB Conc 31.7 g/dL 30.8-34.3 Platelet Count 435 K/uL High 155-360 Red Cell Distri Width SD 48.2 fl High 3-47 Red Cell Distri Width %CV 14.3 % 11.7-14.4 Mean Platelet Volume 9.8 fL 8.9-12.4 Neut% 61.5 % 40.4-72.8 Lymph % 26.7 % 17.0-46.1 [place] % 7.9 % 4.3-13.2 Eo% 3.1 % 0.0-6.6 Bas% 0.8 % 0.0-1.1 Neut# 5.66 K/uL 1.0-7.0 Lymph # 2.46 K/uL 0.8-3.4 [place] # 0.73 K/uL 0.3-0.9 Eos # 0.29 K/uL 0.0-0.5 Baso # 0.07 K/uL 0.0-0.1 Laboratory test 05/28/2012 [facility] [place] Thyroid Stim 2.67 uIU/mL 0.49-4.67 finding [phone] Hormone Comprehensive 05/28/2012 [facility] [place] Glucose 110 mg/dL 76-115 Metabolic Panel [phone] BUN 12 mg/dL 5-23 Creatinine 0.9 mg/dL 0.5-1.4 Glom Filtration Rate, Estimate >60 mL/min >60 If >60 mL/min >60 76 BUN/Creat 13.3 ratio Sodium 141 mmol/L 136-145 Potassium 4.4 mmol/L 3.5-5.1 Chloride 105 mmol/L 98-107 Carbon Dioxide 27 mEq/L 18-29 Anion Gap 13 mEq/L 8-16 Calcium 9.2 mg/dL 8.5-10.1 Total Protein 8.2 g/dL High 6.3-8.0 Albumin 3.6 g/dL 3.5-5.0 Globulin 4.6 g/dL High 1.9-4.3 Alb/Glob 0.8 ratio Bilirubin,Total 0.7 mg/dL 0.2-1.2 Sgot/Ast 17 U/L 16-40 SGPT/Alt 22 U/L Low 30-65 Alkaline Phosphatase 78 U/L 50-136 Laboratory test 05/28/2012 [facility] [place] Vitamin 5.7 Low 30.0-100.0 77 finding [phone] D,25-Hydroxy ng/mL LDL Cholesterol 05/28/2012 [facility] [place] Cholesterol 320 High 120-200 Profile [phone] mg/dL Triglycerides 271 mg/dL High 16-231 HDL Cholesterol 43 mg/dL 29-83 LDL-Cholesterol 223 mg/dL High 62-185 Glycohemoglobin 05/28/2012 [facility] [place] Glycohemoglobin 6.4 % High 4.8-6.0 78 A1c [phone] (A1c) eAG 137 mg/dL Glycohemoglobin 02/27/2012 [facility] [place] Glycohemoglobin 7.0 % High 4.8-6.0 79 A1c [phone] (A1c) eAG 154 mg/dL Glycohemoglobin 12/30/2011 [facility] [place] Glycohemoglobin 7.5 % High 4.8-6.0 80 A1c [phone] (A1c) eAG 169 mg/dL LDL Cholesterol Profile 12/30/2011 [facility] [place] Cholesterol 165 mg/dL 120-200 [phone] Triglycerides 175 mg/dL 16-231 HDL Cholesterol 52 mg/dL 29-83 LDL-Cholesterol 78 mg/dL 62-185 Comprehensive Metabolic 12/30/2011 [facility] [place] Glucose 133 mg/dL High 76-115 Panel [phone] BUN 10 mg/dL 5-23 Creatinine 0.8 mg/dL 0.5-1.4 Glom Filtration Rate, Estimate >60 mL/min >60 If >60 mL/min >60 81 BUN/Creat 12.5 ratio Sodium 141 mmol/L 136-145 Potassium 3.9 mmol/L 3.5-5.1 Chloride 105 mmol/L 98-107 Carbon Dioxide 29 mEq/L 18-29 Anion Gap 11 mEq/L 8-16 Calcium 9.0 mg/dL 8.5-10.1 Total Protein 7.5 g/dL 6.3-8.0 Albumin 3.5 g/dL 3.5-5.0 Globulin 4.0 g/dL 1.9-4.3 Alb/Glob 0.9 ratio Bilirubin,Total 0.6 mg/dL 0.2-1.2 Sgot/Ast 17 U/L 16-40 SGPT/Alt 23 U/L Low 30-65 Alkaline Phosphatase 74 U/L 50-136 Laboratory test 12/30/2011 [facility] [place] Thyroid Stim 2.13 uIU/mL 0.49-4.67 finding [phone] Hormone CBC W/Automated 12/30/2011 [facility] [place] White Blood 7.7 K/uL 3.1- 10.7 Diff [phone] Count Red Blood Count 4.20 M/uL 3.90-5.40 Hemoglobin 12.9 gm/dL 11.6-15.8 Hematocrit 40.7 % 36.0-46.1 Mean Cell Volume 96.9 fl 80.9-99.0 Mean Corpuscular HGB 30.7 pg 25.9-32.7 Mean Corpuscular HGB Conc 31.7 g/dL 30.8-34.3 Platelet Count 417 K/uL High 155-360 Red Cell Distri Width SD 46.9 fl 3-47 Red Cell Distri Width %CV 13.5 % 11.7-14.4 Mean Platelet Volume 10.0 fL 8.9-12.4 Neut% 60.8 % 40.4-72.8 Lymph % 26.6 % 17.0-46.1 [place] % 8.4 % 4.3-13.2 Eo% 3.4 % 0.0-6.6 Bas% 0.8 % 0.0-1.1 Neut# 4.70 K/uL 1.0-7.0 Lymph # 2.06 K/uL 0.8-3.4 [place] # 0.65 K/uL 0.3-0.9 Eos # 0.26 K/uL 0.0-0.5 Baso # 0.06 K/uL 0.0-0.1 1 D64.9 2 DIARRHEA, NAUSEA, DIZZY 3 Note: Persistent reduction for 3 months or more in an eGFR <60 mL/min/1.73 m2 defines CKD. Patients with eGFR values >/=60 mL/min/1.73 m2 may also have CKD if evidence of persistent proteinuria is present. The original MDRD equation for estimated GFR is not valid for patients less than 18 years of age. Additional information may be found at www.kdoqi.org. 4 URINE, CLEAN CATCH 5 E03.9 6 E03.9 E11.9 7 Reference Guidelines*: Desirable: ........... < 200 mg/dL Borderline High: ..... 200-239 mg/dL High: ................ >=240 mg/dL * The National Cholesterol Education Program (NCEP) 8 Reference Guidelines*: Normal: ............. < 150 mg/dL Borderline High: .... 150-199 mg/dL High: ............... 200-499 mg/dL Very High: .......... > 500 mg/dL * Source: National Cholesterol Education Program (NCEP) 9 Reference Guidelines*: Low HDL: ..... < 40 mg/dL Normal: ..... 40-60 mg/dL Desirable: ... > 60 mg/dL *The National Cholesterol Education Program(NCEP) 10 Reference Guidelines*: Optimal:........... <100 mg/dL Near Optimal....... 100-129 mg/dL Borderline High.... 130-159 mg/dL High............... 160-189 mg/dL Very High.......... >=190 mg/dL * Source: National Cholesterol Education Program (NCEP) 11 Elevated levels of HbA1c suggest the need for more aggressive treatment of glycemia. The [place] [employer] recommends that a primary goal of therapy should be a HbA1c of <7% and that physicians should re-evaluate the treatment regimen in patients with HbA1c values consistently >8%. 12 Note: Persistent reduction for 3 months or more in an eGFR <60 mL/min/1.73 m2 defines CKD. Patients with eGFR values >/=60 mL/min/1.73 m2 may also have CKD if evidence of persistent proteinuria is present. The original MDRD equation for estimated GFR is not valid for patients less than 18 years of age. Additional information may be found at www.kdoqi.org. 13 Reference Guidelines*: Desirable: ........... < 200 mg/dL Borderline High: ..... 200-239 mg/dL High: ................ >=240 mg/dL * The National Cholesterol Education Program (NCEP) 14 Reference Guidelines*: Normal: ............. < 150 mg/dL Borderline High: .... 150-199 mg/dL High: ............... 200-499 mg/dL Very High: .......... > 500 mg/dL * Source: National Cholesterol Education Program (NCEP) 15 Reference Guidelines*: Low HDL: ..... < 40 mg/dL Normal: ..... 40-60 mg/dL Desirable: ... > 60 mg/dL *The National Cholesterol Education Program(NCEP) 16 Reference Guidelines*: Optimal:........... <100 mg/dL Near Optimal....... 100-129 mg/dL Borderline High.... 130-159 mg/dL High............... 160-189 mg/dL Very High.......... >=190 mg/dL * Source: National Cholesterol Education Program (NCEP) 17 E03.9 E78.5 E66.3 18 Reference Guidelines*: Desirable: ........... < 200 mg/dL Borderline High: ..... 200-239 mg/dL High: ................ >=240 mg/dL * The National Cholesterol Education Program (NCEP) 19 Reference Guidelines*: Normal: ............. < 150 mg/dL Borderline High: .... 150-199 mg/dL High: ............... 200-499 mg/dL Very High: .......... > 500 mg/dL * Source: National Cholesterol Education Program (NCEP) 20 Reference Guidelines*: Low HDL: ..... < 40 mg/dL Normal: ..... 40-60 mg/dL Desirable: ... > 60 mg/dL *The National Cholesterol Education Program(NCEP) 21 Reference Guidelines*: Optimal:........... <100 mg/dL Near Optimal....... 100-129 mg/dL Borderline High.... 130-159 mg/dL High............... 160-189 mg/dL Very High.......... >=190 mg/dL * Source: National Cholesterol Education Program (NCEP) 22 Note: Persistent reduction for 3 months or more in an eGFR <60 mL/min/1.73 m2 defines CKD. Patients with eGFR values >/=60 mL/min/1.73 m2 may also have CKD if evidence of persistent proteinuria is present. The original MDRD equation for estimated GFR is not valid for patients less than 18 years of age. Additional information may be found at www.kdoqi.org. 23 [id number] SEE RESULT BELOW Name: ORESTES AGUILAR : [address]: Talha Miller MD Acct: [id number] Unit: [id number] AGE: 66 Location: [facility] Re11/05/16 SEX: F Status: REG REF SPEC: [id number] RAUL: 11/05/16-[address]: Talha Miller MD REQ: [id number] RECD: 11/06/16 STATUS: COMP _ SOURCE: THROAT SPDESC: ORDERED: Throat Culture COMMENTS: [id number] Procedure Result Reported Site Throat Culture Final 11/08/16- 1036 ML Organism 1 NORMAL EDUARDO Quantity 2+ Throat cultures are clinically indicated to detect the presence of group A strep, arcanobacterium and yeast. In certain cases, predominating organisms will be reported. * ML - MAIN LAB ([facility]) . END OF REPORT * ML=Testing performed at Main Lab DEPARTMENT OF PATHOLOGY, [address] [place] [address] Bienvenido Valladares M.D. Director [facility] # [id number] 25 Elevated levels of HbA1c suggest the need for more aggressive treatment of glycemia. The [place] [employer] recommends that a primary goal of therapy should be a HbA1c of <7% and that physicians should re-evaluate the treatment regimen in patients with HbA1c values consistently >8%. 26 Reference Guidelines*: Desirable: ........... < 200 mg/dL Borderline High: ..... 200-239 mg/dL High: ................ >=240 mg/dL * The National Cholesterol Education Program (NCEP) 27 Reference Guidelines*: Normal: ............. < 150 mg/dL Borderline High: .... 150-199 mg/dL High: ............... 200-499 mg/dL Very High: .......... > 500 mg/dL * Source: National Cholesterol Education Program (NCEP) 28 Reference Guidelines*: Low HDL: ..... < 40 mg/dL Normal: ..... 40-60 mg/dL Desirable: ... > 60 mg/dL *The National Cholesterol Education Program(NCEP) 29 Reference Guidelines*: Optimal:........... <100 mg/dL Near Optimal....... 100-129 mg/dL Borderline High.... 130-159 mg/dL High............... 160-189 mg/dL Very High.......... >=190 mg/dL * Source: National Cholesterol Education Program (NCEP) 30 Antibodies to HCV not detected; does not exclude early acute HCV infection. 31 QUERY: Reflex add FT3? Y QUERY: Reflex add FT4? Y 32 Vitamin D deficiency has been defined by the [employer] and an Endocrine Society practice guideline as a level of serum 25-OH vitamin D less than 20 ng/mL (1,2). The Endocrine Society went on to further define vitamin D insufficiency as a level between 21 and 29 ng/mL (2). 1. IOM ([employer]). 2010. Dietary reference intakes for calcium and D. [place]: The National Academies Press. 2. Keisha MF, Kevin NC, Alex OSUNA, et al. Evaluation, treatment, and prevention of vitamin D deficiency: an Endocrine Society clinical practice guideline. JCEM. 2010; 96(7):1911-30. Performed at: RN - [facility] [address] [id number] Supervisor Film Processing: Juanita Li MD, Phone: [phone] 33 Elevated levels of HbA1c suggest the need for more aggressive treatment of glycemia. The [place] [employer] recommends that a primary goal of therapy should be a HbA1c of <7% and that physicians should re-evaluate the treatment regimen in patients with HbA1c values consistently >8%. 34 Note: Persistent reduction for 3 months or more in an eGFR <60 mL/min/1.73 m2 defines CKD. Patients with eGFR values >/=60 mL/min/1.73 m2 may also have CKD if evidence of persistent proteinuria is present. The original MDRD equation for estimated GFR is not valid for patients less than 18 years of age. Additional information may be found at [email or web address]. 35 Reference Guidelines*: Desirable: ........... < 200 mg/dL Borderline High: ..... 200-239 mg/dL High: ................ >=240 mg/dL * The National Cholesterol Education Program (NCEP) 36 Reference Guidelines*: Normal: ............. < 150 mg/dL Borderline High: .... 150-199 mg/dL High: ............... 200-499 mg/dL Very High: .......... > 500 mg/dL * Source: National Cholesterol Education Program (NCEP) 37 Reference Guidelines*: Low HDL: ..... < 40 mg/dL Normal: ..... 40-60 mg/dL Desirable: ... > 60 mg/dL *The National Cholesterol Education Program(NCEP) 38 Reference Guidelines*: Optimal:........... <100 mg/dL Near Optimal....... 100-129 mg/dL Borderline High.... 130-159 mg/dL High............... 160-189 mg/dL Very High.......... >=190 mg/dL * Source: National Cholesterol Education Program (NCEP) 39 Reference Guidelines*: Desirable: ........... < 200 mg/dL Borderline High: ..... 200-239 mg/dL High: ................ >=240 mg/dL * The National Cholesterol Education Program (NCEP) 40 Reference Guidelines*: Normal: ............. < 150 mg/dL Borderline High: .... 150-199 mg/dL High: ............... 200-499 mg/dL Very High: .......... > 500 mg/dL * Source: National Cholesterol Education Program (NCEP) 41 Reference Guidelines*: Low HDL: ..... < 40 mg/dL Normal: ..... 40-60 mg/dL Desirable: ... > 60 mg/dL *The National Cholesterol Education Program(NCEP) 42 Reference Guidelines*: Optimal:........... <100 mg/dL Near Optimal....... 100-129 mg/dL Borderline High.... 130-159 mg/dL High............... 160-189 mg/dL Very High.......... >=190 mg/dL * Source: National Cholesterol Education Program (NCEP) 43 Note: Persistent reduction for 3 months or more in an eGFR <60 mL/min/1.73 m2 defines CKD. Patients with eGFR values >/=60 mL/min/1.73 m2 may also have CKD if evidence of persistent proteinuria is present. The original MDRD equation for estimated GFR is not valid for patients less than 18 years of age. Additional information may be found at www.[email or web address]. 44 Elevated levels of HbA1c suggest the need for more aggressive treatment of glycemia. The [place] [employer] recommends that a primary goal of therapy should be a HbA1c of <7% and that physicians should re-evaluate the treatment regimen in patients with HbA1c values consistently >8%. 45 Reference Guidelines*: Desirable: ........... < 200 mg/dL Borderline High: ..... 200-239 mg/dL High: ................ >=240 mg/dL * The National Cholesterol Education Program (NCEP) 46 Reference Guidelines*: Normal: ............. < 150 mg/dL Borderline High: .... 150-199 mg/dL High: ............... 200-499 mg/dL Very High: .......... > 500 mg/dL * Source: National Cholesterol Education Program (NCEP) 47 Reference Guidelines*: Low HDL: ..... < 40 mg/dL Normal: ..... 40-60 mg/dL Desirable: ... > 60 mg/dL *The National Cholesterol Education Program(NCEP) 48 Reference Guidelines*: Optimal:........... <100 mg/dL Near Optimal....... 100-129 mg/dL Borderline High.... 130-159 mg/dL High............... 160-189 mg/dL Very High.......... >=190 mg/dL * Source: National Cholesterol Education Program (NCEP) 49 QUERY: Is the Patient Fasting? Y 50 Note: Persistent reduction for 3 months or more in an eGFR <60 mL/min/1.73 m2 defines CKD. Patients with eGFR values >/=60 mL/min/1.73 m2 may also have CKD if evidence of persistent proteinuria is present. The original MDRD equation for estimated GFR is not valid for patients less than 18 years of age. Additional information may be found at [email or web address]. 51 A1c value between 5.7% and 6.4% is considered at increased risk for diabetes. A1c value greater than 6.5 % is considered essentially diagnostic for Type II diabetes. Current guidelines recommend a treatment goal of <7% for diabetic patients. This method will measure glycosylated hemoglobin variants, HbS, HbG, HbH, HbWayne, HbC, HbE, etc. Other hemoglobin- opathies may give incorrect results with this test. 52 Performed at: - [facility] [id number] Supervisor Film Processing: Juanita Li MD, Phone: [phone] 53 Vitamin D deficiency has been defined by the [employer] and an Endocrine Society practice guideline as a level of serum 25-OH vitamin D less than 20 ng/mL (1,2). The Endocrine Society went on to further define vitamin D insufficiency as a level between 21 and 29 ng/mL (2). 1. IOM ([employer]). 2010. Dietary reference intakes for calcium and D. [place]: The National Academies Press. 2. Keisha MF, Kevin NC, Ofe-Sid OSUNA, et al. Evaluation, treatment, and prevention of vitamin D deficiency: an Endocrine Society clinical practice guideline. JCEM. 2010; 96(7):1911-30. Performed at: - [facility] [id number] Supervisor Film Processing: Juanita Li MD, Phone: [phone] 54 A low TSH should not be the sole basis for diagnosing primary hyperthyroidism, or primary hypopituitary function. Additional tests are suggested for confirmation. 55 A1c value between 5.7% and 6.4% is considered at increased risk for diabetes. A1c value greater than 6.5 % is considered essentially diagnostic for Type II diabetes. Current guidelines recommend a treatment goal of <7% for diabetic patients. This method will measure glycosylated hemoglobin variants, HbS, HbG, HbH, HbWayne, HbC, HbE, etc. Other hemoglobin- opathies may give incorrect results with this test. 56 Note: Persistent reduction for 3 months or more in an eGFR <60 mL/min/1.73 m2 defines CKD. Patients with eGFR values >/=60 mL/min/1.73 m2 may also have CKD if evidence of persistent proteinuria is present. The original MDRD equation for estimated GFR is not valid for patients less than 18 years of age. Additional information may be found at [email or web address]. 57 Note: Persistent reduction for 3 months or more in an eGFR <60 mL/min/1.73 m2 defines CKD. Patients with eGFR values >/=60 mL/min/1.73 m2 may also have CKD if evidence of persistent proteinuria is present. The original MDRD equation for estimated GFR is not valid for patients less than 18 years of age. Additional information may be found at [email or web address]. 58 A1c value between 5.7% and 6.4% is considered at increased risk for diabetes. A1c value greater than 6.5 % is considered essentially diagnostic for Type II diabetes. Current guidelines recommend a treatment goal of <7% for diabetic patients. This method will measure glycosylated hemoglobin variants, HbS, HbG, HbH, HbWayne, HbC, HbE, etc. Other hemoglobin- opathies may give incorrect results with this test. 59 A low TSH should not be the sole basis for diagnosing primary hyperthyroidism, or primary hypopituitary function. Additional tests are suggested for confirmation. 60 Note: Persistent reduction for 3 months or more in an eGFR <60 mL/min/1.73 m2 defines CKD. Patients with eGFR values >/=60 mL/min/1.73 m2 may also have CKD if evidence of persistent proteinuria is present. The original MDRD equation for estimated GFR is not valid for patients less than 18 years of age. Additional information may be found at [email or web address]. 61 QUERY: Reflex add FT3? QUERY: Reflex add FT4? Y 62 Note: Persistent reduction for 3 months or more in an eGFR <60 mL/min/1.73 m2 defines CKD. Patients with eGFR values >/=60 mL/min/1.73 m2 may also have CKD if evidence of persistent proteinuria is present. The original MDRD equation for estimated GFR is not valid for patients less than 18 years of age. Additional information may be found at [email or web address]. 63 A1c value between 5.7% and 6.4% is considered at increased risk for diabetes. A1c value greater than 6.5 % is considered essentially diagnostic for Type II diabetes. Current guidelines recommend a treatment goal of <7% for diabetic patients. This method will measure glycosylated hemoglobin variants, HbS, HbG, HbH, HbWayne, HbC, HbE, etc. Other hemoglobin- opathies may give incorrect results with this test. 64 Note: Persistent reduction for 3 months or more in an eGFR <60 mL/min/1.73 m2 defines CKD. Patients with eGFR values >/=60 mL/min/1.73 m2 may also have CKD if evidence of persistent proteinuria is present. The original MDRD equation for estimated GFR is not valid for patients less than 18 years of age. Additional information may be found at [email or web address]. 65 Note: Persistent reduction for 3 months or more in an eGFR <60 mL/min/1.73 m2 defines CKD. Patients with eGFR values >/=60 mL/min/1.73 m2 may also have CKD if evidence of persistent proteinuria is present. The original MDRD equation for estimated GFR is not valid for patients less than 18 years of age. Additional information may be found at [email or web address]. 66 QUERY: Reflex add FT3? Y QUERY: Reflex add FT4? Y 67 A1c value between 5.7% and 6.4% is considered at increased risk for diabetes. A1c value greater than 6.5 % is considered essentially diagnostic for Type II diabetes. Current guidelines recommend a treatment goal of <7% for diabetic patients. This method will measure glycosylated hemoglobin variants, HbS, HbG, HbH, HbWayne, HbC, HbE, etc. Other hemoglobin- opathies may give incorrect results with this test. 68 THERAPEUTIC INR RANGE: 2.0 - 3.0 DVT, Pulmonary embolus, prophylaxis against venous thrombosis or systemic embolization in high risk patients. 2.5 - 3.5 Mechanical heart valves 69 A1c value between 5.7% and 6.4% is considered at increased risk for diabetes. A1c value greater than 6.5 % is considered essentially diagnostic for Type II diabetes. Current guidelines recommend a treatment goal of <7% for diabetic patients. This method will measure glycosylated hemoglobin variants, HbS, HbG, HbH, HbWayne, HbC, HbE, etc. Other hemoglobin- opathies may give incorrect results with this test. 70 Note: Persistent reduction for 3 months or more in an eGFR <60 mL/min/1.73 m2 defines CKD. Patients with eGFR values >/=60 mL/min/1.73 m2 may also have CKD if evidence of persistent proteinuria is present. The original MDRD equation for estimated GFR is not valid for patients less than 18 years of age. Additional information may be found at [email or web address]. 71 Note: Persistent reduction for 3 months or more in an eGFR <60 mL/min/1.73 m2 defines CKD. Patients with eGFR values >/=60 mL/min/1.73 m2 may also have CKD if evidence of persistent proteinuria is present. The original MDRD equation for estimated GFR is not valid for patients less than 18 years of age. Additional information may be found at [email or web address]. 72 A1c value between 5.7% and 6.4% is considered at increased risk for diabetes. A1c value greater than 6.5 % is considered essentially diagnostic for Type II diabetes. Current guidelines recommend a treatment goal of <7% for diabetic patients. This method will measure glycosylated hemoglobin variants, HbS, HbG, HbH, HbWayne, HbC, HbE, etc. Other hemoglobin- opathies may give incorrect results with this test. 73 Note: Persistent reduction for 3 months or more in an eGFR <60 mL/min/1.73 m2 defines CKD. Patients with eGFR values >/=60 mL/min/1.73 m2 may also have CKD if evidence of persistent proteinuria is present. The original MDRD equation for estimated GFR is not valid for patients less than 18 years of age. Additional information may be found at [email or web address]. 74 A1c value between 5.7% and 6.4% is considered at increased risk for diabetes. A1c value greater than 6.5 % is considered essentially diagnostic for Type II diabetes. Current guidelines recommend a treatment goal of <7% for diabetic patients. This method will measure glycosylated hemoglobin variants, HbS, HbG, HbH, HbWayne, HbC, HbE, etc. Other hemoglobin- opathies may give incorrect results with this test. 75 Note: Persistent reduction for 3 months or more in an eGFR <60 mL/min/1.73 m2 defines CKD. Patients with eGFR values >/=60 mL/min/1.73 m2 may also have CKD if evidence of persistent proteinuria is present. The original MDRD equation for estimated GFR is not valid for patients less than 18 years of age. Additional information may be found at [email or web address]. 76 Note: Persistent reduction for 3 months or more in an eGFR <60 mL/min/1.73 m2 defines CKD. Patients with eGFR values >/=60 mL/min/1.73 m2 may also have CKD if evidence of persistent proteinuria is present. The original MDRD equation for estimated GFR is not valid for patients less than 18 years of age. Additional information may be found at [email or web address]. 77 Vitamin D deficiency has been defined by the [employer] and an Endocrine Society practice guideline as a level of serum 25-OH vitamin D less than 20 ng/mL (1,2). The Endocrine Society went on to further define vitamin D insufficiency as a level between 21 and 29 ng/mL (2). 1. IOM ([employer]). 2010. Dietary reference intakes for calcium and D. [place]: The National Academies Press. 2. Keisha MF, Kevin NC, Alex OSUNA, et al. Evaluation, treatment, and prevention of vitamin D deficiency: an Endocrine Society clinical practice guideline. JCEM. 2010; 96(7):1911-30. Performed at: RN - [facility] [address], [place], [place] [id number] Supervisor Film Processing: Juanita Li MD, Phone: [phone] 78 A1c value between 5.7% and 6.4% is considered at increased risk for diabetes. A1c value greater than 6.5 % is considered essentially diagnostic for Type II diabetes. Current guidelines recommend a treatment goal of <7% for diabetic patients. This method will measure glycosylated hemoglobin variants, HbS, HbG, HbH, HbWayne, HbC, HbE, etc. Other hemoglobin- opathies may give incorrect results with this test. 79 A1c value between 5.7% and 6.4% is considered at increased risk for diabetes. A1c value greater than 6.5 % is considered essentially diagnostic for Type II diabetes. Current guidelines recommend a treatment goal of <7% for diabetic patients. This method will measure glycosylated hemoglobin variants, HbS, HbG, HbH, HbWayne, HbC, HbE, etc. Other hemoglobin- opathies may give incorrect results with this test. 80 A1c value between 5.7% and 6.4% is considered at increased risk for diabetes. A1c value greater than 6.5 % is considered essentially diagnostic for Type II diabetes. Current guidelines recommend a treatment goal of <7% for diabetic patients. This method will measure glycosylated hemoglobin variants, HbS, HbG, HbH, HbWayne, HbC, HbE, etc. Other hemoglobin- opathies may give incorrect results with this test. 81 Note: Persistent reduction for 3 months or more in an eGFR <60 mL/min/1.73 m2 defines CKD. Patients with eGFR values >/=60 mL/min/1.73 m2 may also have CKD if evidence of persistent proteinuria is present. The original MDRD equation for estimated GFR is not valid for patients less than 18 years of age. Additional information may be found at [email or web address]. Procedures Date Code Description Status 06/22/2018 [id number] Mammogram Completed 06/10/2016 18629 Color/Snellen Vision Completed 06/10/2016 77863 Audiogram, Screen Only Pure Tone Completed 06/07/2015 [id number] Colonoscopy Completed 06/07/2015 61278 Snellen Only Vison Completed 12/15/2014 [id number] Mammogram Completed 12/15/2014 [id number] Bone Mineral Density Test Completed 06/02/2013 91135 Hearing Test Completed 08/31/2012 90230 Cerumen Removal w/instrument Completed 06/01/2012 88936 Hearing Test Completed 12/17/2010 95567 Color/Snellen Vision Completed 12/17/2010 75462 Hearing Test Completed 08/30/2009 93132 Color/Snellen Vision Completed 08/30/2009 71197 Hearing Test Completed 05/30/2009 13208 Oximetry For Oxygen,Single Determ Completed 02/03/2008 92149 Oximetry For Oxygen,Single Determ Completed 06/12/2006 06656 Cerumen Removal w/instrument Completed Encounters Type Date Location Provider Dx Diagnosis Office Visit 09/14/2018 Main Office Talha Miller, K25.0 Acute gastric ulcer 1:00p M.D. with hemorrhage D64.9 Anemia, unspecified Office Visit 08/13/2018 1:45p Main Office Talha Miller D64.9 Anemia, M.D. unspecified K25.0 Acute gastric ulcer with hemorrhage Office Visit 06/16/2018 1:00p Main Office Talha Miller, Z00.00 Encntr for M.D. 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 respiratory infection, unspecified Office Visit 06/11/2017 1:00p Main Office Talha Miller Z00.01 Encounter for M.D. general adult medical exam w abnormal findings E03.9 Hypothyroidism, unspecified E78.5 Hyperlipidemia, unspecified J44.9 Chronic obstructive pulmonary disease, unspecified E66.3 Overweight M81.0 Age-related osteoporosis w/o current pathological fracture Office Visit 11/05/2016 2:15p Main Office Nancy Lopez PA J06.9 Acute upper respiratory infection, unspecified J02.9 Acute pharyngitis, unspecified M79.1 Myalgia Office Visit 06/10/2016 1:00p Main Office Talha Miller, Z00.01 Encounter for M.D. general adult medical exam w abnormal findings E03.9 Hypothyroidism, unspecified E11.9 Type 2 diabetes mellitus without complications E78.5 Hyperlipidemia, unspecified J44.9 Chronic obstructive pulmonary disease, unspecified E66.3 Overweight Z11.9 Encounter for screening for infec/parastc diseases, [facility] Office Visit 12/07/2015 1:30p Main Office Talha Miller J44.9 Chronic M.D. obstructive pulmonary disease, unspecified E11.9 Type 2 diabetes mellitus without complications E78.5 Hyperlipidemia, unspecified E03.9 Hypothyroidism, unspecified Office Visit 06/07/2015 1:00p Main Office Talha Miller, V70.0 Examination M.D. General Medical Routine AT Health Care Facility 733.00 Osteoporosis Unspec 272.4 Hyperlipidemia Other Unspec 244.9 Hypothyroidism Other Unspec 250.00 Diabetes Mellitus W/O Compl Type II Or Unspec Controlled 496 COPD Airway Obstruction Chronic Not Class Elsewhere 696.8 Psoriasis Other 357.2 Polyneuropathy In Diabetes 268.9 Vitamin D Deficiency Unspec Office Visit 01/10/2015 1:15p Main Office Talha 733.00 Osteoporosis Héctor Miller Unspec 272.4 Hyperlipidemia Other Unspec Office Visit 12/07/2014 1:30p Main Office Talha Miller, 250.00 Diabetes Mellitus M.D. W/O Compl Type II Or Unspec Controlled 272.4 Hyperlipidemia Other Unspec 244.9 Hypothyroidism Other Unspec V76.12 Screening Mammogram Malig Yung Other V49.81 Postmenopausal Status Asymptomatic (Age-Related,Natural) 496 COPD Airway Obstruction Chronic Not Class Elsewhere Office Visit 06/06/2014 1:00p Main Office Talha Miller, V70.0 Examination M.D. 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 250.00 Diabetes Mellitus W/O Compl Type II Or Unspec Controlled 272.4 Hyperlipidemia Other Unspec 496 COPD Airway Obstruction Chronic Not Class Elsewhere 244.9 Hypothyroidism Other Unspec 696.8 Psoriasis Other Office Visit 11/09/2013 2:30p Main Office Talha Miller, 250.00 Diabetes Mellitus M.D. W/O Compl Type II Or Unspec Controlled 278.01 Obesity Morbid Office Visit 09/06/2013 1:15p Main Office Talha Miller, 250.00 Diabetes Mellitus M.D. W/O Compl Type II Or Unspec Controlled 272.4 Hyperlipidemia Other Unspec 496 COPD Airway Obstruction Chronic Not Class Elsewhere 278.01 Obesity Morbid 244.9 Hypothyroidism Other Unspec 719.46 Pain Joint Lower Leg Office Visit 06/02/2013 3:00p Main Office Talha V72.84 Examination Héctor Miller Preoperative Unspec 250.00 Diabetes Mellitus W/O Compl Type II Or Unspec Controlled 272.4 Hyperlipidemia Other Unspec 496 COPD Airway Obstruction Chronic Not Class Elsewhere 278.01 Obesity Morbid 244.9 Hypothyroidism Other Unspec 493.90 Asthma Unspec W/O Status Asthmaticus 782.3 Edema 357.2 Polyneuropathy In Diabetes 477.9 Rhinitis Allergic Cause Unspec V70.0 Examination General Medical Routine AT Health Care Facility Office Visit 04/12/2013 1:30p Main Office Talha Miller, 250.00 Diabetes Mellitus M.D. W/O Compl Type II Or Unspec Controlled 272.4 Hyperlipidemia Other Unspec 401.9 Hypertension Unspec 496 COPD Airway Obstruction Chronic Not Class Elsewhere 278.01 Obesity Morbid 244.9 Hypothyroidism Other Unspec 493.90 Asthma Unspec W/O Status Asthmaticus Office Visit 01/11/2013 1:30p Main Office Talha Miller, 250.00 Diabetes Mellitus M.D. W/O Compl Type II Or Unspec Controlled 272.4 Hyperlipidemia Other Unspec 401.9 Hypertension Unspec 496 COPD Airway Obstruction Chronic Not Class Elsewhere 278.01 Obesity Morbid 782.3 Edema 357.2 Polyneuropathy In Diabetes Office Visit 12/09/2012 1:15p Main Office Talha Miller, 250.00 Diabetes Mellitus M.D. W/O Compl Type II Or Unspec Controlled 272.4 Hyperlipidemia Other Unspec 401.9 Hypertension Unspec 496 COPD Airway Obstruction Chronic Not Class Elsewhere 278.01 Obesity Morbid 782.3 Edema Office Visit 08/31/2012 1:00p Main Office Talha Miller, 250.00 Diabetes Mellitus M.D. 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 W/O Compl Type II Or Unspec Controlled 496 COPD Airway Obstruction Chronic Not Class Elsewhere 244.9 Hypothyroidism Other Unspec 493.90 Asthma Unspec W/O Status Asthmaticus 278.00 Obesity Unspec 272.4 Hyperlipidemia Other Unspec Office Visit 01/01/2012 1:15p Main Office Talha Miller, 250.00 Diabetes Mellitus M.D. W/O Compl Type II Or Unspec Controlled 278.00 Obesity Unspec 496 COPD Airway Obstruction Chronic Not Class Elsewhere 244.9 Hypothyroidism Other Unspec 493.90 Asthma Unspec W/O Status Asthmaticus 272.4 Hyperlipidemia Other Unspec 401.9 Hypertension Unspec Office Visit 12/02/2011 2:00p Main Office Talha Miller, 250.00 Diabetes Mellitus M.D. W/O Compl Type II Or Unspec Controlled 278.00 Obesity Unspec 496 COPD Airway Obstruction Chronic Not Class Elsewhere 244.9 Hypothyroidism Other Unspec 493.90 Asthma Unspec W/O Status Asthmaticus 272.4 Hyperlipidemia Other Unspec Office Visit 10/23/2011 3:00p Main Office Talha Miller, 250.00 Diabetes Mellitus M.D. W/O Compl Type II Or Unspec Controlled 278.00 Obesity Unspec 496 COPD Airway Obstruction Chronic Not Class Elsewhere V04.81 Need For Prophylactic Vaccination & Inoculation/Influenza Office Visit 09/23/2011 4:15p Main Office Talha Miller, 465.9 URI Upper M.D. Respiratory Infections Acute Unspec Sites 244.9 Hypothyroidism Other Unspec 250.00 Diabetes Mellitus W/O Compl Type II Or Unspec Controlled 496 COPD Airway Obstruction Chronic Not Class Elsewhere Office Visit 07/01/2011 Main Office Talha 244.9 Hypothyroidism Other 1:30p Héctor Miller Unspec 496 COPD Airway Obstruction Chronic Not Class Elsewhere 250.00 Diabetes Mellitus W/O Compl Type II Or Unspec Controlled Office Visit 03/18/2011 2:00p Main Office Talha Miller, 250.00 Diabetes Mellitus M.D. W/O Compl Type II Or Unspec Controlled 496 COPD Airway Obstruction Chronic Not Class Elsewhere 493.90 Asthma Unspec W/O Status Asthmaticus 272.4 Hyperlipidemia Other Unspec Office Visit 12/17/2010 2:00p Main Office Talha Miller, V70.0 Examination M.D. General Medical Routine AT Health Care Facility 250.00 Diabetes Mellitus W/O Compl Type II Or Unspec Controlled 496 COPD Airway Obstruction Chronic Not Class Elsewhere 493.90 Asthma Unspec W/O Status Asthmaticus Office Visit 09/13/2010 2:00p Main Office Talha Miller, 250.00 Diabetes Mellitus M.D. W/O Compl Type II Or Unspec Controlled 496 COPD Airway Obstruction Chronic Not Class Elsewhere 272.4 Hyperlipidemia Other Unspec 244.9 Hypothyroidism Other Unspec V04.81 Need For Prophylactic Vaccination & Inoculation/Influenza Office Visit 06/13/2010 3:15p Main Office Talha Miller, 250.00 Diabetes Mellitus M.D. W/O Compl Type II Or Unspec Controlled 244.9 Hypothyroidism Other Unspec 272.4 Hyperlipidemia Other Unspec Office Visit 03/14/2010 3:30p Main Office Talha Miller, 496 COPD Airway M.D. Obstruction Chronic Not Class Elsewhere 250.00 Diabetes Mellitus W/O Compl Type II Or Unspec Controlled 244.9 Hypothyroidism Other Unspec Office Visit 12/28/2009 9:15a Main Office Talha Miller, 496 COPD Airway M.D. Obstruction Chronic Not Class Elsewhere 493.90 Asthma Unspec W/O Status Asthmaticus 250.00 Diabetes Mellitus W/O Compl Type II Or Unspec Controlled 244.9 Hypothyroidism Other Unspec Office Visit 12/12/2009 Main Office Talha 272.4 Hyperlipidemia Other 3:15p Héctor Miller Unspec 782.3 Edema 496 COPD Airway Obstruction Chronic Not Class Elsewhere 278.00 Obesity Unspec Office Visit 08/30/2009 11:00a Main Office Talha Miller, V70.0 Examination M.D. General Medical Routine AT Health Care Facility 250.00 Diabetes Mellitus W/O Compl Type II Or Unspec Controlled 272.4 Hyperlipidemia Other Unspec V04.81 Need For Prophylactic Vaccination & Inoculation/Influenza Office Visit 05/30/2009 Main Office Talha 244.9 Hypothyroidism Other 11:30a Héctor Miller Unspec 250.00 Diabetes Mellitus W/O Compl Type II Or Unspec Controlled 272.4 Hyperlipidemia Other Unspec 496 COPD Airway Obstruction Chronic Not Class Elsewhere V70.0 Examination General Medical Routine AT Health Care Facility Office Visit 03/10/2009 10:45a Main Office Talha Miller, 465.9 URI Upper M.D. Respiratory Infections Acute Unspec Sites 786.2 Cough Office Visit 02/28/2009 11:00a Main Office Talha Miller, 250.00 Diabetes Mellitus M.D. W/O Compl Type II Or Unspec Controlled 787.91 Diarrhea 496 COPD Airway Obstruction Chronic Not Class Elsewhere Office Visit 11/15/2008 Main Office Talha 272.4 Hyperlipidemia Other 11:30a Héctor Miller Unspec 250.00 Diabetes Mellitus W/O Compl Type II Or Unspec Controlled 496 COPD Airway Obstruction Chronic Not Class Elsewhere Office Visit 08/16/2008 11:30a Main Office Talha Miller, 250.00 Diabetes Mellitus M.D. W/O Compl Type II Or Unspec Controlled 244.9 Hypothyroidism Other Unspec 496 COPD Airway Obstruction Chronic Not Class Elsewhere Office Visit 07/18/2008 Main Office Talha 244.9 Hypothyroidism Other 2:30p Héctor Miller Unspec 496 COPD Airway Obstruction Chronic Not Class Elsewhere 250.00 Diabetes Mellitus W/O Compl Type II Or Unspec Controlled 272.4 Hyperlipidemia Other Unspec Office Visit 05/16/2008 10:30a Main Office Talha Miller, 496 COPD Airway M.D. Obstruction Chronic Not Class Elsewhere 272.4 Hyperlipidemia Other Unspec 244.9 Hypothyroidism Other Unspec 493.90 Asthma Unspec W/O Status Asthmaticus V70.0 Examination General Medical Routine AT Health Care Facility Office Visit 04/14/2008 Main Office Talha 244.9 Hypothyroidism Other 9:30a Héctor Miller Unspec 272.4 Hyperlipidemia Other Unspec 496 COPD Airway Obstruction Chronic Not Class Elsewhere 305.1 Tobacco Use Disorder Office Visit 02/17/2008 1:30p Main Office Talha Paul, 496 COPD Airway M.D. Obstruction Chronic Not Class Elsewhere 272.4 Hyperlipidemia Other Unspec 278.00 Obesity Unspec Office Visit 02/03/2008 11:30a Main Office Talha Sernaellanos, 496 COPD Airway M.D. Obstruction Chronic Not Class Elsewhere 401.9 Hypertension Unspec 244.9 Hypothyroidism Other Unspec 799.02 Hypoxemia Office Visit 01/05/2008 11:15a Main Office Talha Miller, 496 COPD Airway M.D. Obstruction Chronic Not Class Elsewhere 305.1 Tobacco Use Disorder 486 Pneumonia Organism Unspec 799.02 Hypoxemia Office Visit 12/24/2007 11:15a Main Office Talha Miller, 496 COPD Airway M.D. Obstruction Chronic Not Class Elsewhere 491.9 Bronchitis Unspec Chronic 480.9 Pneumonia Viral Unspec 799.02 Hypoxemia Office Visit 12/17/2007 11:30a Main Office Talha Miller, 496 COPD Airway M.D. Obstruction Chronic Not Class Elsewhere 486 Pneumonia Organism Unspec 491.9 Bronchitis Unspec Chronic Office Visit 12/15/2007 9:00a Main Office Kim Swanson 486 Pneumonia Organism G., [employer] Unspec 496 COPD Airway Obstruction Chronic Not Class Elsewhere 305.1 Tobacco Use Disorder Office Visit 09/01/2007 8:45a Main Office Sky 272.4 Hyperlipidemia Other Kim G., Unspec [employer] 244.9 Hypothyroidism Other Unspec Plan of Treatment Future Appointment(s):06/17/2019 1:00 pm - Talha Miller M.D. at Main [id number]/17/2018 1:30 pm - Talha Miller M.D. at Main [id number]/14/2018 - Talha Miller M.D.K25.0 Acute gastric ulcer with hemorrhageFollow up:1 [id number] Anemia, unspecifiedNew Labs:CBC, Ordered: 09/14/18Iron-Tibc-%Sat, Ordered: 09/14/18
[2018-09-26 17:39] VITALS: BP 134/63
--- NOTE | 2018-09-26 18:02 | UC ---
Skin Complaint HPI - HPI Summary HPI Summary: Patient cut the right pinky finger on a saran wrap box small 1 cm simple lac present - History of Current Complaint Chief Complaint: UCLaceration Time Seen by Provider: 09/26/18 17:35 Stated Complaint: RIGHT HAND, PINKY FINGER LAC Hx Obtained From: Patient ?: No Onset/Duration: Sudden Onset, Lasting Minutes Skin Exposure Onset/Duration: Minutes Ago Timing: Constant Onset Severity: Mild Current Severity: Mild Pain Intensity: 0 Location: Discrete - Allergy/Home Medications Allergies/Adverse Reactions: Allergies Allergy/AdvReac Type Severity Reaction Status Date / Time No Known Allergies Allergy Verified 09/26/18 17:39 Home Medications: Home Medications Atorvastatin* [Lipitor*] 80 mg PO QPM 09/26/18 [History Confirmed 09/26/18] Cholecalciferol (Vitamin D3) [Kp Vitamin D3] 5 tab PO DAILY 09/26/18 [History Confirmed 09/26/18] Cyanocobalamin TAB* [Vitamin B12 TAB*] 500 mcg PO EVERY OTHER DAY 09/26/18 [ History Confirmed 09/26/18] Ferrous Sulfate TAB* 325 mg PO DAILY 09/26/18 [History Confirmed 09/26/18] Levothyroxine TAB* [Synthroid TAB*] 150 mcg PO DAILY 09/26/18 [History Confirmed 09/26/18] Losartan Potassium [Cozaar] 50 mg PO DAILY 09/26/18 [History Confirmed 09/26/18] Metoprolol Tartrate TAB* [Lopressor TAB*] 25 mg PO DAILY 09/26/18 [History Confirmed 09/26/18] Nitroglycerin TAB 0.4 MG* 0.4 mg SL . NEEDED PRN 09/26/18 [History Confirmed 09/26/18] Ondansetron TAB* [Zofran 4 MG Tab*] 4 mg PO Q6H PRN 09/26/18 [History Confirmed 09/26/18] Pantoprazole TAB (NF) [Protonix TAB (NF)] 40 mg PO DAILY 09/26/18 [History Confirmed 09/26/18] Pedi Multivit No.25/Folic Acid [Flintstones Multivit Chew Tab] 300 mcg PO DAILY 09/26/18 [History Confirmed 09/26/18] Sucralfate TAB* [Carafate*] 1 gm PO QID 09/26/18 [History Confirmed 09/26/18] Review of Systems Constitutional: Negative Skin: Other - laceration Eyes: Negative ENT: Negative Respiratory: Negative Cardiovascular: Negative Gastrointestinal: Negative Genitourinary: Negative Motor: Negative Neurovascular: Negative Musculoskeletal: Negative Neurological: Negative Psychological: Negative Is Patient Immunocompromised?: No All Other Systems Reviewed And Are Negative: Yes PMH/Surg Hx/FS Hx/Imm Hx Previously Healthy: Yes - Surgical History Surgical History: Yes Surgery Procedure, Year, and Place: hysterectomy. tonsillectomy - Family History Known Family History: Negative: Cardiac Disease, Hypertension - Social History Alcohol Use: None Substance Use Type: None Smoking Status (MU): Never Smoked Tobacco Physical Exam Triage Information Reviewed: Yes Appearance: Well-Appearing, Well-Nourished, Pain Distress Vital Signs: Initial Vital Signs Temp 97.8 F 09/26/18 17:34 Pulse 51 09/26/18 17:34 Resp 16 09/26/18 17:34 BP 134/63 09/26/18 17:34 Pulse Ox 95 09/26/18 17:34 Vital Signs Reviewed: Yes Eye Exam: Normal ENT Exam: Normal Dental Exam: Normal Neck exam: Normal Neck: Positive: Supple, Nontender, No Lymphadenopathy Respiratory Exam: Normal Respiratory: Positive: Chest non-tender, Lungs clear, Normal breath sounds Cardiovascular Exam: Normal Cardiovascular: Positive: RRR, No Murmur, Pulses Normal Musculoskeletal Exam: Normal Neurological Exam: Normal Psychological Exam: Normal Skin Exam: Normal Laceration Repair - Laceration Repair 1 Description: Linear Laceration Size After Repair: Length (cm) - 1 Modified For Repair: No Cleansing Completed Via Routine Prep: Yes Irrigation With Pressure Irrigation Device: No Closure Material: Skin Adhesive, SteriStrips Closure Method: Single Layer Suture Of: Skin Course/Dx - Course Course Of Treatment: hx obtained, exam performed ,meds reviewed, lac was cleansed glued, 2 steri strips applied and splinted - Diagnoses Provider Diagnoses: 1 cm simple laceration of right pinky finger Discharge - Sign-Out/Discharge Documenting (check all that apply): Patient Departure All imaging exams completed and their final reports reviewed: No Studies - Discharge Plan Condition: Stable Disposition: HOME Patient Education Materials: Skin Adhesive Care (ED) Referrals: Talha Miller MD [Primary Care Provider] - Additional Instructions: 1. keep the area clean and dry 2. Wear the splint continuously for 2-3 days 3. Follow up if any increased in redness swelling, discharge or other sign of infection - Billing Disposition and Condition Condition: STABLE Disposition: Home
== END 2018-09-26 18:07 | disposition home or self-care (01) ==
LOC: UCCORT 16:37
DX: S61.216A Laceration without foreign body of right little finger without damage to nail, initial encounter (principal); W26.8XXA Contact with other sharp object(s), not elsewhere classified, initial encounter; Y92.9 Unspecified place or not applicable
CPT/HCPCS: 12001; 99211; G0463